=== PATIENT | female | born 1980 | race Caucasian/White ===

== ENCOUNTER 2020-09-10 12:55 | Emergency (ER) | payer OTHER, SELFPAY ==
[2020-09-10 13:00] VITALS: BP 168/98; PULSE 120; RESP 18; TEMP 36.7; O2SAT 99
--- NOTE | 2020-09-10 13:43 | NUR.NOTE ---
Nursing Note: Referral given to Care Management to [facility] care with PCP ALEX. Yahaira Vu
[2020-09-10] MEDS: Normal Saline 1,000 ML 1000 ML IV (14:05)
[2020-09-10 14:10] LABS: Abs Immature Grans 0.07 10^3/uL (0.0-0.06); Absolute Basophil Count 0.07 10^3/uL (0.0-0.2); Absolute Lymphocyte Count 1.67 10^3/uL (1.2-3.4); Absolute Monocyte Count 0.62 10^3/uL (0.1-0.8); Basophils % 0.5; Eosinophils % 2.8; HCT 36.5 % (36.0-46.0); HGB 12.3 g/dL (11.2-15.7); Immature Grans % 0.5; Lymphocytes % 12.2; MCH 26.6 pg (27.0-33.0); MCHC 33.7 % (32.0-36.0); MCV 78.8 fL (80-95); MPV 8.8 fL (8.0-11.0); Monocytes % 4.5; Neutrophils % 79.5; Nucleated RBC 0 %; Platelet Count 396 10^3/uL (130-400); RBC 4.63 10^6/uL (3.93-5.22); WBC 13.69 10^3/uL (4.4-10.8)
[2020-09-10 14:11] LABS: Absolute Eosinophil Count 0.38 10^3/uL (0.0-0.7); Absolute Neutrophil Count 10.88 10^3/uL (1.2-6.7)
[2020-09-10 14:24] LABS: Hemoglobin A1C 10.3 % (<5.7)
[2020-09-10 14:28] VITALS: BP 144/80; PULSE 95; RESP 14; O2SAT 100
[2020-09-10 14:30] LABS: ALT 11 U/L (14-59); AST 8 U/L (15-37); Albumin 2.5 g/dL (3.4-5.0); Alkaline Phosphatase 114 U/L (46-116); Anion Gap 5.9 mmol/L (3-11); BUN 19 mg/dL (7-18); Bilirubin, Total 0.2 mg/dL (0.2-1.0); CO2 28.1 mmol/L (21.0-32.0); CREATININE 1.63 mg/dL (0.55-1.02); Calcium 8.6 mg/dL (8.5-10.1); Chloride 96 mmol/L (98-107); Glucose 464 mg/dL (74-106); Potassium 4.1 mmol/L (3.5-5.1); Sodium 130 mmol/L (136-145); Total Protein 6.8 g/dL (6.4-8.2)
--- NOTE | 2020-09-10 15:27 | W.ED.GENAD ---
Discharge Plan Disposition Patient Disposition: HOME Condition: Stable Discharge Details Clinical Impression: Breast abscess, Cellulitis Primary Care Provider: None,None ED Provider: Efraín Lees Home Meds and New Rx's Prescriptions: New sulfamethoxazole-trimethoprim [Bactrim DS] 800-160 mg tablet 1 tab PO BID Qty: 20 RF: 0 Continued lisinopril 10 mg tablet 10 mg PO DAILY Qty: 30 RF: 0 metformin 500 mg tablet 500 mg PO BID Qty: 30 RF: 0 Lantus Solostar U-100 Insulin 100 unit/mL (3 mL) insulin pen 10 unit subcut BID Qty: 15 RF: 0 (DME) OneTouch Ultra Blue Test Strip Strip See Rx Instructions .ROUTE .MEDSUPPLY Qty: 50 RF: 0 Discharge Instructions Instructions: Cellulitis (ED), Abscess (ED) Additional Instructions: Bactrim as directed. Moin-eyx-rmxncfh Tylenol and/or Motrin as directed for discomfort. Warm soaks and/or compresses every 2 hours for 20 minutes. Change dressing daily. Please watch for new or worsening symptoms and return to the ER for any concerns. You have an appointment tomorrow at [facility] [phone] with Tutu Cancino to establish outpatient primary care follow-up at 9 AM. I have also made you an appointment with our surgical team, Dr. Salazar, on at 10:30 AM. Referrals: Tutu Cancino SOCK TURNER [NURSE PRACTITIONER] - Vee Roberts MD [ [facility] STAFF PHYSICIAN] - Discharge Data Discharge Date/Time-TO BE ENTERED AT DEPARTURE: 09/10/20 16:00 Medical Decision Making Patient presents with a pointing abscess to the medial right breast worsening over the past 1-1/2 weeks. More so she is a diabetic who has not been on insulin over the past several years, presents anxious and tachycardic. The abscess will need to be drained, I will reach out to surgery to get their recommendations. Initial fingerstick reveals glucose in the high 400s. Will obtain IV access, give IV fluid, obtain routine laboratory values including A1c. I will recheck to care management to have them talk with the patient and help right outpatient follow-up. Care management was able to get the patient a primary care appointment at [facility] tomorrow at 9 AM. I was able to speak with Dr. Roberts, surgery. The abscess does not involve the areola and she feels as though it can be drained here in the ER but she will be happy to follow the patient on in her office at 1030. Discussed my conversation with surgery and care management with the patient. Laboratory values reveal a white blood cell count of 13.69, sodium 130, creatinine 1.63 with a GFR of 34.6. Hemoglobin A1c 10.3. Wound culture obtained and pending Pulse trending downward, now 95 Glucose down to 394 Given she has not taken insulin in over 2 years, has an appointment with her primary care provider tomorrow morning, I will not initiate any insulin therapy now. Patient is agreeable to this plan. I&D performed without complication. We discussed wound care until she can be evaluated by surgery on . Patient has no additional questions or concerns and she is comfortable discharge at this time. Medical Records Medical records reviewed: Yes I reviewed the patient's medical records. Lab Data Lab results reviewed: Yes I reviewed the patient's lab results. Labs: 09/10/20 15:10 Breast - Right Wound Culture - Pending 09/10/20 15:10 Breast - Right Gram Stain - Final Laboratory Tests Range/Units 09/10/20 09/10/20 09/10/20 14:05 14:05 14:05 WBC (4.4-10.8) 10^3/uL 13.69 H RBC (3.93-5.22) 10^6/uL 4.63 Hgb (11.2-15.7) g/dL 12.3 Hct (36.0-46.0) % 36.5 MCV (80-95) fL 78.8 L MCH (27.0-33.0) pg 26.6 L MCHC (32.0-36.0) % 33.7 RDW (11.7-14.6) % 13.0 Plt Count (130-400) 10^3/uL 396 MPV (8.0-11.0) fL 8.8 Immature Gran % 0.5 Neutrophils % 79.5 Lymphocytes % 12.2 Monocytes % 4.5 Eosinophils % 2.8 Basophils % 0.5 Nucleated RBC % % 0 Absolute Neutrophils (1.2-6.7) 10^3/uL 10.88 H Absolute Lymphocytes (1.2-3.4) 10^3/uL 1.67 Absolute Monocytes (0.1-0.8) 10^3/uL 0.62 Absolute Eosinophils (0.0-0.7) 10^3/uL 0.38 Absolute Basophils (0.0-0.2) 10^3/uL 0.07 Sodium (136-145) mmol/L 130 L Potassium (3.5-5.1) mmol/L 4.1 Chloride (98-107) mmol/L 96 L Carbon Dioxide (21.0-32.0) mmol/L 28.1 Anion Gap (3-11) mmol/L 5.9 BUN (7-18) mg/dL 19 H Creatinine (0.55-1.02) mg/dL 1.63 H Estimated GFR/1.73 m2 (mL/min/1.73m2) 34.60 Glucose (74-106) mg/dL 464 H Hemoglobin A1c (<5.7) % 10.3 H Calcium (8.5-10.1) mg/dL 8.6 Total Bilirubin (0.2-1.0) mg/dL 0.2 AST (15-37) U/L 8 L ALT (14-59) U/L 11 L Alkaline Phosphatase (46-116) U/L 114 Total Protein (6.4-8.2) g/dL 6.8 Albumin (3.4-5.0) g/dL 2.5 L HPI General Mode of arrival: ambulatory. Date/Time Provider Initiated Documentation: 09/10/20 13:17. Limitations to Documentation: no limitations. Information obtained by: patient. HPI Narrative: 40-year-old female, known diabetes, has not taken insulin over 2 years because she did not have insurance. Patient is a current everyday smoker. She recently obtained insurance and is in the process of obtaining a primary care provider. She states that she has had reoccurring cyst all over her body, sometimes they spontaneously resolve, other times she needs to have them drained. She has had a cyst on her right medial breast now worsening for approximately 1-1/2 weeks. She denies any fever, pain in her axilla, rash elsewhere on her body. It is not drained on its own yet but is moderately to severely painful. She states that she does not want any pain medication simply wants the pressure relieved. Related Data Home Medications Medication Instructions Recorded Confirmed sulfamethoxazole-trimethoprim 1 tab PO BID #20 tab 09/10/20 09/11/20 [Bactrim DS] blood sugar diagnostic #50 ea 09/11/20 09/11/20 insulin glargine 100 unit/mL (3 10 unit SUBCUT BID #15 ml 09/11/20 09/11/20 mL) subcutaneous pen lisinopril 10 mg tablet 10 mg PO DAILY #30 tab 09/11/20 09/11/20 metformin 500 mg tablet 500 mg PO BID #30 tab 09/11/20 09/11/20 Previous Rx's Medication Instructions Recorded sulfamethoxazole-trimethoprim 1 tab PO BID #20 tab 09/10/20 [Bactrim DS] blood sugar diagnostic #50 ea 09/11/20 insulin glargine 100 unit/mL (3 10 unit SUBCUT BID #15 ml 09/11/20 mL) subcutaneous pen lisinopril 10 mg tablet 10 mg PO DAILY #30 tab 09/11/20 metformin 500 mg tablet 500 mg PO BID #30 tab 09/11/20 Allergies Allergy/AdvReac Type Severity Reaction Status Date / Time fentanyl AdvReac Verified 09/11/20 08:58 General Stated Complaint: Cellulitis JOE: 3 Review of Systems Constitutional Constitutional: Denies fatigue, Denies fever(s) and Denies weakness Musculoskeletal Musculoskeletal: Denies numbness and Denies tingling Integumentary/Breasts Skin/Breast: Reports erythema Neurologic Neurologic: Denies numbness, Denies tingling and Denies weakness Endocrine Endocrine: Denies fatigue and Denies polydipsia [facility] Medical History Diabetes mellitus Social History Smoking/Tobacco Use Status: Current every day Smoking risk assessment performed?: Yes Alcohol Intake: never Drug use: Occasionally Substance use type: marijuana Do you feel safe at home: Yes Do you feel safe in your relationship?: Yes Exam Const General: cooperative, healthy appearing, comfortable, no acute distress and anxious Orientation: alert and awake [facility] Head: normal to inspection, normocephalic and atraumatic Face and sinus: normal facial exam Mouth: moist mucous membranes Eyes General: appearance normal, both eyes and all related structures Eyelids: eyelids normal Conjunctivae: conjunctivae normal Neck Neck: normal visual inspection, full ROM, no lymphadenopathy, no meningeal signs, trachea midline, supple and nontender Chest Other: Right axilla nontender, no lymphadenopathy Chest/axillae images: 1. Centrally there is a fluctuant and pointing abscess with surrounding induration erythema, tenderness and warmth. Skin is intact. Does not extend across midline or to the areola. Resp Effort & Inspection: normal respiratory effort and able to speak in complete sentences Auscultation: clear to auscultation bilaterally Cardio Rate: tachycardic (112) Rhythm: regular rhythm GI Palpation: soft and nontender Skin General skin exam: no rashes or lesions noted Neuro General: patient alert, patient awake, moves all extremities and no focal motor deficits Sensory Exam: no sensory deficits noted Psych Appearance: grossly normal Mental Status: mental status grossly normal Course Vital Signs Vital signs: Vital Signs Temperature 36.7 C 09/10/20 13:00 Pulse 120 H 09/10/20 13:00 Respiratory Rate 18 09/10/20 13:00 Blood Pressure 168/98 H 09/10/20 13:00 Pulse Oximetry 99 09/10/20 13:00 Temperature 36.7 C 09/10/20 13:00 Temperature Source Temporal Artery Scan 09/10/20 13:00 Pulse 95 H 09/10/20 14:28 Respiratory Rate 14 09/10/20 14:28 Blood Pressure 144/80 H 09/10/20 14:28 Blood Pressure Position Sitting 09/10/20 13:00 Pulse Oximetry 100 09/10/20 14:28 Oxygen Delivery Method Room Air 09/10/20 14:28 Oxygen Flow Rate 0 09/10/20 14:28 Pain Level 8 09/10/20 13:00 Lab/Test Results Lab/Test Results: 09/10/20 15:09 Breast - Right Wound Culture - Pending 09/10/20 15:09 Breast - Right Gram Stain - Pending Laboratory Tests Range/Units 09/10/20 09/10/20 09/10/20 14:05 14:05 14:05 WBC (4.4-10.8) 10^3/uL 13.69 H RBC (3.93-5.22) 10^6/uL 4.63 Hgb (11.2-15.7) g/dL 12.3 Hct (36.0-46.0) % 36.5 MCV (80-95) fL 78.8 L MCH (27.0-33.0) pg 26.6 L MCHC (32.0-36.0) % 33.7 RDW (11.7-14.6) % 13.0 Plt Count (130-400) 10^3/uL 396 MPV (8.0-11.0) fL 8.8 Immature Gran % 0.5 Neutrophils % 79.5 Lymphocytes % 12.2 Monocytes % 4.5 Eosinophils % 2.8 Basophils % 0.5 Nucleated RBC % % 0 Absolute Neutrophils (1.2-6.7) 10^3/uL 10.88 H Absolute Lymphocytes (1.2-3.4) 10^3/uL 1.67 Absolute Monocytes (0.1-0.8) 10^3/uL 0.62 Absolute Eosinophils (0.0-0.7) 10^3/uL 0.38 Absolute Basophils (0.0-0.2) 10^3/uL 0.07 Sodium (136-145) mmol/L 130 L Potassium (3.5-5.1) mmol/L 4.1 Chloride (98-107) mmol/L 96 L Carbon Dioxide (21.0-32.0) mmol/L 28.1 Anion Gap (3-11) mmol/L 5.9 BUN (7-18) mg/dL 19 H Creatinine (0.55-1.02) mg/dL 1.63 H Estimated GFR/1.73 m2 (mL/min/1.73m2) 34.60 Glucose (74-106) mg/dL 464 H Hemoglobin A1c (<5.7) % 10.3 H Calcium (8.5-10.1) mg/dL 8.6 Total Bilirubin (0.2-1.0) mg/dL 0.2 AST (15-37) U/L 8 L ALT (14-59) U/L 11 L Alkaline Phosphatase (46-116) U/L 114 Total Protein (6.4-8.2) g/dL 6.8 Albumin (3.4-5.0) g/dL 2.5 L Procedures Abscess I/D Site: Other (R Breast) Side (if applicable): Right Local Anesthetic: Lidocaine 2% Amount of anesthesia used (mL): 5 Technique: Incised with #11 Blade Amount of fluid expressed (mL): 10 Irrigation: No Packing used?: Iodoform Complications: Other (Cultures obtained)
[2020-09-10] MEDS: Sulfameth/Trimeth DS TAB 1 TAB PO (15:30)
[2020-09-10 16:00] VITALS: BP 141/82; PULSE 91; RESP 16; O2SAT 100
== END 2020-09-10 16:00 | disposition home or self-care (01) ==
PROVIDERS: Emergency Provider Physician Assistant; PCP Nurse Practitioner Family
DX: N61.1 Abscess of the breast and nipple (principal); E11.65 Type 2 diabetes mellitus with hyperglycemia; Z79.4 Long term (current) use of insulin; T38.3X6A Underdosing of insulin and oral hypoglycemic [antidiabetic] drugs, initial encounter; Z91.120 Patient's intentional underdosing of medication regimen due to financial hardship; I10 Essential (primary) hypertension
CPT/HCPCS: 10061; 36415; 36416; 80053; 82962; 96360; 99284; 83036; 85025; 87070; 87205; 99282

== ENCOUNTER 2020-09-16 03:00 | Outpatient (CLI) | payer OTHER, SELFPAY ==
[2020-09-16 09:16] LABS: HCT 39.2 % (36.0-46.0); HGB 12.8 g/dL (11.2-15.7); MCH 26.6 pg (27.0-33.0); MCHC 32.7 % (32.0-36.0); MCV 81.3 fL (80-95); MPV 8.8 fL (8.0-11.0); Platelet Count 472 10^3/uL (130-400); RBC 4.82 10^6/uL (3.93-5.22); RDW 12.9 % (11.7-14.6); WBC 9.54 10^3/uL (4.4-10.8)
[2020-09-16 09:25] LABS: Prothrombin Time 9.7 sec (9.3-11.0)
[2020-09-16 09:53] LABS: ALT 11 U/L (14-59); AST 9 U/L (15-37); Alkaline Phosphatase 97 U/L (46-116); Anion Gap 8.8 mmol/L (3-11); BUN 25 mg/dL (7-18); Bilirubin, Total 0.1 mg/dL (0.2-1.0); CO2 23.2 mmol/L (21.0-32.0); CREATININE 1.98 mg/dL (0.55-1.02); Calcium 9.1 mg/dL (8.5-10.1); Chloride 101 mmol/L (98-107); Cholesterol 310 mg/dL (<200); Estimated GFR 27.64 (mL/min/1.73m2); Glucose 225 mg/dL (74-106); HDL Cholesterol 28 mg/dL (40-60); Potassium 4.9 mmol/L (3.5-5.1); Sodium 133 mmol/L (136-145); Total Protein 6.5 g/dL (6.4-8.2); Triglyceride 466 mg/dL (<150)
[2020-09-16 10:06] LABS: LDL CHOLESTEROL 173 mg/dL (<100)
== END 2020-09-16 03:20 ==
PROVIDERS: Surgery; Visit Provider Nurse Practitioner Family
DX: N61.1 Abscess of the breast and nipple (principal); E11.620 Type 2 diabetes mellitus with diabetic dermatitis; Z13.220 Encounter for screening for lipoid disorders; L03.818 Cellulitis of other sites; I10 Essential (primary) hypertension
CPT/HCPCS: 36415; 80048; 80053; 80061; 83721; 85027; 85610; 86140

== ENCOUNTER 2020-10-21 00:18 | Outpatient (CLI) | payer OTHER, SELFPAY ==
--- NOTE | 2020-10-21 06:45 | DI.MAMMO_ITS ---
EXAM: MG MAMMO DIAGNOSTIC BI and U/S breast RT limited CLINICAL HISTORY: S/P ABSCESS LOWER INNER QUAD RT BREAST, BREAST DISCHARGE, HARDNESS. TECHNIQUE: Craniocaudal and mediolateral oblique Full Field Digital Mammography views with Computer Aided Diagnosis followed by Tomosynthesis and right breast ultrasound. COMPARISON: No previous for comparison. FINDINGS: Mammography/Tomosynthesis: Masses/Architectural Distortion: None seen. Microcalcifictions: No suspicious pleomorphic-type are seen. Skin Thickening/Nipple Retraction: There is mild skin thickening seen in the inferior medial right br east. Right breast US: Echotexture: Normal appearance of the glandular tissue. In the subcutaneous layer of the tissues the re is an ovoid fluid collection measuring 3.7 x 0.6 x 3.9 cm. It is located at the 5 o'clock positio n of the right breast 6 cm from the nipple and corresponds to the mammographic abnormality. The flui d collection connects to the skin surface. This corresponds to the area of the patient's recent cyst aspiration. Shadowing: No suspicious foci. Cyst: None. Solid lesions: None seen. Ductal dilation: None. IMPRESSION: 1. No evidence of malignancy is noted. There is a 3.7 x 0.6 x 3.9 cm fluid collection in the subcutan eous tissues at the 5 o'clock position of the right breast 6 cm from the nipple. It connects to the skin surface. Given the patient's history, an abscess, resolving hematoma or seroma is suspected. 2. Unless there is more urgent need, follow-up screening mammography is recommended, as per [employer] guidelines. BI-RADS Category 2 - Benign Findings Breast Density - Category B - Scattered areas of fibroglandular density A negative radiographic report should not delay biopsy if a dominant or clinically suspicious mass is present. Up to ten percent of cancers are not identified on mammography. A negative report may reinforce clinical impression. Adenosis and dense breasts may obscure an underlying neoplasm. False positive reports average 6 to 10%. Patient will receive a letter notifying them of these results.
== END 2020-10-21 00:38 ==
PROVIDERS: PCP Nurse Practitioner Family; Visit Provider Surgery
DX: N61.1 Abscess of the breast and nipple (principal); N64.52 Nipple discharge; R92.8 Other abnormal and inconclusive findings on diagnostic imaging of breast
CPT/HCPCS: 76642; 77062; 77066; G0279

== ENCOUNTER 2020-10-22 20:54 | Outpatient (REF) | payer OTHER, SELFPAY | END 2020-10-22 21:14 | LOC: LBN 20:54 | PROVIDERS: PCP Nurse Practitioner Family; Visit Provider Surgery | DX: N61.1 Abscess of the breast and nipple (principal) | CPT/HCPCS: 87070; 87205 ==

== ENCOUNTER 2020-11-15 04:05 | Outpatient (CLI) | payer OTHER, SELFPAY ==
[2020-11-16 15:52] LABS: COVID-19 RT-PCR Result NEGATIVE (Negative)
== END 2020-11-15 04:25 ==
PROVIDERS: PCP Nurse Practitioner Family; Visit Provider Surgery
DX: Z11.52 Encounter for screening for COVID-19 (principal); Z01.818 Encounter for other preprocedural examination
CPT/HCPCS: U0003

== ENCOUNTER 2020-11-20 11:23 | Day surgery (SDC) | payer OTHER, SELFPAY ==
--- NOTE | 2020-11-20 06:59 | ROE_ITS ---
Date of service: 11/20/20 Time of Service: 13:26 Operative Note Operative Note DATE OF PROCEDURE: 11/20/20 PRE-OP DIAGNOSIS: Sebaceous cyst of right breast POST-OP DIAGNOSIS: same PROCEDURE: Excision of sebaceous cyst right breast SURGEON: Arleth Boles NET C DEVELOPER: Carmen Sanchez ANESTHESIA: MAC (ASA 2/ Brodie Ibanez CRNA) and local ESTIMATED BLOOD LOSS: 15 PATHOLOGY: other (Cyst of right Breast) COMPLICATIONS: None Patient was transported to: same day Patient's condition: stable Implants: none Indications: Right Breast sebacous cyst, s/p incision and drainage. P\\ Excision of sebaceous cyst in the OR under MAC Complications of the procedure were reviewed with her and she wished to p roceed. Complications include but are not limited to bleeding, infection, recurrence, wound dehiscence and adverse reaction to the medications. Questions were answered and entertained to her satisfaction and she wished to proceed. No guarantees were given or implied Findings: Cyst pocket with granulation tissue. No mass Procedure Description: After informed consent was obtained the patient was taken to the Operating room and placed in a supine position. The patient was placed under MAC sedation by anesthesia. At this point a time out was done. The patients name, , allergy to medications, DVT porphilaxis and antibiotic prophilaxis, procedure and site were reviewed. Fire risk was assessed. The skin was then prepped and draped in a sterile surgical fashion. An area around the cyst was marked measuring 2 x 6 cm. 1% Lidocaine mixed 50/50 with 0.5% Marcaine with epinephrine was injected along the marked area. An incision was made around the marked area with a 15 blade. Dissection was done down to normal fatty tissue with cautery. Once the lesion was completely dissected it was marked at the 12 o'clock position and placed into formalin and sent to pathology. The wound was irrigated with some saline. Bleeding was stopped using cautery. Once the wound was clean and dry the subcutaneous tissue was re-approximated with 3-0 Vicryl interrupted sutures. The dermis was closed with a subcuticular running 4-0 Vicryl suture. Skin was cleaned and dried and mastasol and steri-strips were applied. A dry Mepilex dressing was applied. The patient tolerated the procedure well and there were no immediate complications. Needle counts were correct at the end of the case. The patient was woken up and taken back to [facility] in stable condition.
--- NOTE | 2020-11-20 07:01 | W.PM.DSUDISC ---
Discharge Plan Disposition Patient Disposition: HOME Condition: Good Discharge Details Reason For Visit: Cyst of right breast Attending Provider: Arleth Boles Primary Care Provider: Tutu Cancino Home Meds and New Rx's Prescriptions: Continued Lantus Solostar U-100 Insulin 100 unit/mL (3 mL) insulin pen 10 unit subcut BID Qty: 15 RF: 0 (DME) OneTouch Ultra Blue Test Strip Strip See Rx Instructions .ROUTE .MEDSUPPLY Qty: 50 RF: 0 clobetasol 0.05 % ointment 1 applic topical DAILY Qty: 45 RF: 0 (DME) pen needle, diabetic [1st Tier Unifine Pentips] 31 gauge x 3/16 needle See Rx Instructions .ROUTE .MEDSUPPLY Qty: 100 RF: 3 rizatriptan [Maxalt] 10 mg tablet 10 mg PO ONCE Qty: 14 RF: 0 ondansetron HCl [Zofran] 4 mg tablet 4 mg PO Q6H Qty: 14 RF: 1 metformin 500 mg tablet 500 mg PO BID Qty: 30 RF: 0 atorvastatin 40 mg tablet 40 mg PO DAILY Qty: 90 RF: 5 topiramate [Topamax] 25 mg tablet 25 mg PO DAILY Qty: 30 RF: 0 lisinopril 20 mg tablet 20 mg PO DAILY Qty: 60 RF: 4 cephalexin [Keflex] 500 mg capsule 500 mg PO BID Qty: 10 RF: 0 Discharge Instructions Additional Instructions: Activity at Home after surgery: 1. As tolerated Diet, Nutrition, & wound healin. Avoid alcohol until after you are recovered from your surgery 2. Make sure to eat plenty of lean protein (meat, fish, eggs, cottage cheese, beans) 3. Eat a variety of fruits and vegetables. Eat plenty of high fiber foods to avoid constipation. 4. Drink plenty of liquids to stay hydrated and avoid constipation Pain Medications: 1. Tylenol 650 mg every 6 hours and Ibuprofen 600 mg every 6 hours. You can alternate between the 2 medications every 3 hours 2. If a narcotic has been prescribed take as directed only for breakthrough pain For Constipation: 1. Take Milk of Magnesia or MiraLax as needed for constipation Other: 1. You may shower daily. Do not scrub the incisions 2. Do not soak the incisions for 1 week 3. You may alternate ice and heat as needed for pain and swelling Wound Care: 1. Keep the incisions clean and dry Please call our office if you develop: 1. Fevers >101.5 2. Nausea or Vomiting 3. Worsening pain 4. Redness and thick discharge from the wounds If after hours please call the Hospital at and ask to speak to the on-call surgeon Referrals: Arleth Boles MD [ [facility] STAFF PHYSICIAN] - 11/29/20 10:30 am Activity:: Activity as Tolerated Activity:: Activity as Tolerated Equipment/Supplies:: No Equipment Needed Diet:: As Tolerated Discharge Orders Discharge Orders: Discharge Order (Routine); Ordered 11/20/20 Ordered By: Arleth Boles
[2020-11-20 11:30] VITALS: BP 163/99; PULSE 86; RESP 17; TEMP 36.2; O2SAT 100
[2020-11-20] MEDS: Normal Saline 1,000 ML 80 ML IV (12:15)
[2020-11-20] MEDS: ceFAZolin 2 GM/50 ML BAG IVPB (12:33)
[2020-11-20] MEDS: Bupivacaine 0.25% Pres-Free 30 ML VIAL (12:54)
[2020-11-20] MEDS: EPINEPHrine 1 MG/ML AMP pres-free (12:56)
[2020-11-20] MEDS: Lidocaine 1% Multi-Dose 50 ML VIAL (12:57)
--- NOTE | 2020-11-20 13:00 | BREAST_PTH ---
PATIENT: Kaitlynn Niño LOC: [facility] U#:[id number] AGE/SX: 40/F ROOM: RE11/20/[address]: Arleth Boles MD : 1980 BED: DIS: 11/20/2020 SPEC #: [id number] RECD: 11/20/20 18:30 STATUS: DIMA REMichael #: [id number] VARUN: 11/20/20 13:[address]: Arleth Boles DEPT: Surgical Specimen RECD BY: Teri Hicks ENTERED: 11/20/20 18:31 SP TYPE: Breast OTHR DR: Tutu Cancino, JOSELINE Tissues: 1 - BREAST INCISION/EXCISION Procedures: SKIN LEVEL 4 Comments: [id number]
[2020-11-20 13:41] VITALS: BP 156/90; PULSE 68; RESP 19; TEMP 36.1; O2SAT 100
== END 2020-11-20 14:04 | disposition home or self-care (01) ==
LOC: DSU 13:26 → SUR 11-21 08:24
PROVIDERS: PCP Nurse Practitioner Family; Visit Provider Surgery
PROC: (CPT 19120; principal; 2020-11-20 13:15)
DX: L72.3 Sebaceous cyst (principal); E11.9 Type 2 diabetes mellitus without complications; Z79.4 Long term (current) use of insulin
CPT/HCPCS: 19120; 81025; 88305; 88307; J0171; J0690; J2001

== ENCOUNTER 2020-12-02 09:19 | Outpatient (REF) | payer OTHER, SELFPAY ==
--- NOTE | 2020-12-02 08:45 | PAPFT_PTH ---
PATIENT: Kaitlynn Niño LOC: [facility] U#:[id number] AGE/SX: 40/F ROOM: RE12/02/[address]: Tutu Cancino NP : 1980 BED: DIS: 12/02/2020 SPEC #: [id number] RECD: 12/02/20 13:16 STATUS: DIMA PIERCE #: [id number] VARUN: 12/02/20 08:[address]: Tutu Cancino DEPT: [facility] Cytology RECD BY: Teri Hicks Tissues: 1 - CX/ENDOCX FOR PAP SMEARS Procedures: PAP THIN PREP/UVM Screening HPV DNA PROBE Comments: [id number]
== END 2020-12-02 09:39 ==
LOC: LBN 09:19
PROVIDERS: PCP Nurse Practitioner Family; Visit Provider Nurse Practitioner Family
DX: Z12.4 Encounter for screening for malignant neoplasm of cervix (principal); Z11.51 Encounter for screening for human papillomavirus (HPV)
CPT/HCPCS: 88142; 87624

== ENCOUNTER 2020-12-27 01:54 | Outpatient (CLI) | payer OTHER, SELFPAY ==
[2020-12-27 13:14] LABS: CREATININE 1.2 mg/dL (0.55-1.02); Estimated GFR 49.27 (mL/min/1.73m2)
[2020-12-27 13:18] LABS: Hemoglobin A1C 9.3 % (<5.7)
== END 2020-12-27 01:55 | disposition home or self-care (01) ==
LOC: LBO 01:54
PROVIDERS: PCP Nurse Practitioner Family; Visit Provider Nurse Practitioner Family
DX: E11.65 Type 2 diabetes mellitus with hyperglycemia (principal); Z79.4 Long term (current) use of insulin
CPT/HCPCS: 36415; 82565; 83036

== ENCOUNTER 2021-03-05 15:12 | Outpatient (REF) | payer OTHER, SELFPAY ==
[2021-03-05 22:11] LABS: Abs Immature Grans 0.04 10^3/uL (0.0-0.06); Absolute Basophil Count 0.08 10^3/uL (0.0-0.2); Absolute Eosinophil Count 0.45 10^3/uL (0.0-0.7); Absolute Monocyte Count 0.44 10^3/uL (0.1-0.8); Absolute Neutrophil Count 4.96 10^3/uL (1.2-6.7); Eosinophils % 5.4; HCT 37.9 % (36.0-46.0); HGB 12.5 g/dL (11.2-15.7); Immature Grans % 0.5; Lymphocytes % 28.7; MCH 26.9 pg (27.0-33.0); MCV 81.7 fL (80-95); MPV 9.4 fL (8.0-11.0); Monocytes % 5.3; Neutrophils % 59.1; Nucleated RBC 0 %; Platelet Count 349 10^3/uL (130-400); RBC 4.64 10^6/uL (3.93-5.22); RDW-SD 41.1 fL; WBC 8.37 10^3/uL (4.4-10.8)
[2021-03-05 22:15] LABS: CREATININE 1.6 mg/dL (0.55-1.02); Estimated GFR 35.35 (mL/min/1.73m2)
[2021-03-05 22:22] LABS: ALT 18 U/L (14-59); AST 11 U/L (15-37); Albumin 3.2 g/dL (3.4-5.0); Alkaline Phosphatase 95 U/L (46-116); Anion Gap 9.8 mmol/L (3-11); BUN 21 mg/dL (7-18); Bilirubin, Total 0.3 mg/dL (0.2-1.0); C-Reactive Protein 0.84 mg/dL (0.0-0.3); CO2 25.2 mmol/L (21.0-32.0); CREATININE 1.6 mg/dL (0.55-1.02); Chloride 105 mmol/L (98-107); Estimated GFR 35.35 (mL/min/1.73m2); Glucose 157 mg/dL (74-106); Potassium 4.6 mmol/L (3.5-5.1); Sodium 140 mmol/L (136-145); Total Protein 6.5 g/dL (6.4-8.2)
== END 2021-03-05 15:13 | disposition home or self-care (01) ==
LOC: LBN 15:12
PROVIDERS: PCP Nurse Practitioner Family; Visit Provider Nurse Practitioner Family
DX: R10.9 Unspecified abdominal pain (principal); E11.65 Type 2 diabetes mellitus with hyperglycemia; Z79.4 Long term (current) use of insulin; N39.0 Urinary tract infection, site not specified; R19.8 Other specified symptoms and signs involving the digestive system and abdomen
CPT/HCPCS: 80053; 82565; 85025; 86140; 87086

== ENCOUNTER 2021-05-18 06:21 | Emergency (ER) | payer OTHER, SELFPAY ==
[2021-05-18] VITALS (20 sets, daily range): BP systolic 151–219; BP diastolic 67–99; PULSE 45–120; RESP 20; TEMP 36.2; O2SAT 96–100
--- NOTE | 2021-05-18 06:30 | DI.CT_ITS ---
Exam(s) CT BRAIN CTA EXAM: CT BRAIN CTA CLINICAL HISTORY: severe headache. TECHNIQUE: Imaging Protocol: Both noninfused and contrast infused CT scans of the brain were perform ed. IV Contrast Dose =85 cc Axial computed tomography images with coronal and sagittal reformatted images were created and review ed COMPARISON: No exams were available for comparison FINDINGS: BRAIN CTA STUDY: The field of view of this study is from the skull base up. Neck was not scanned. ANTERIOR CIRCULATION: Both internal carotid arteries are patent in the skull base as well as within t he cavernous sinuses. Both middle cerebral arteries are patent. Both A1 segments are patent as are the anterior cerebral arteries. There is no evidence of aneurysm at the level of the anterior commun icating artery. POSTERIOR CIRCULATION: Basilar artery is formed at the skull base by both vertebral arteries. There is no evidence of intraluminal thrombus nor dissection in the basilar artery. Distally the sup erior cerebellar arteries are patent. Basilar artery terminates as right posterior cerebral artery. Left posterior cerebral artery is fed predominantly by a posterior communicating artery on the left side of the [id number]-[id number]. There are no skull fractures nor fluid in the visualized paranasal sinuses. There is no evidence of intracranial hemorrhage, mass effect, or shift of midline structures. There are no extra-axial fluid collections. The ventricles are not enlarged or shifted and there is no blo od within the ventricular system nor within the basal cisterns. There are no ring enhancing lesions in the brain and there is no abnormal meningeal enhancement, foca l or diffuse. IMPRESSION: Patent appearing intracranial arteries. Also no aneurysms. No significant enhancing intracranial findings. No evidence of intracranial hemorrhage, intra or extra-axial. RADIATION DOSE DELIVERED: 1,440.52mGy.cm Total DLP DATA REPOSITORY: All CT scans at this facility are submitted to the National Radiology Data Registry (NRDR) Dose Index Registry (DIR) with the [employer] ([employer]). RADIATION OPTIMIZATION: All CT scans at this facility use at least one of these dose optimization te chniques: automated exposure control; mA and/or kV adjustment per patient size (includes targeted exa ms where dose is matched to clinical indication); or iterative reconstruction.
[2021-05-18 06:49] LABS: Abs Immature Grans 0.04 10^3/uL (0.0-0.06); Absolute Basophil Count 0.07 10^3/uL (0.0-0.2); Absolute Eosinophil Count 0.39 10^3/uL (0.0-0.7); Absolute Lymphocyte Count 2.76 10^3/uL (1.2-3.4); Absolute Monocyte Count 0.44 10^3/uL (0.1-0.8); Absolute Neutrophil Count 5.39 10^3/uL (1.2-6.7); Basophils % 0.8; Eosinophils % 4.3; HCT 40.8 % (36.0-46.0); HGB 13.2 g/dL (11.2-15.7); Immature Grans % 0.4; Lymphocytes % 30.4; MCH 26.5 pg (27.0-33.0); MCHC 32.4 % (32.0-36.0); MCV 81.8 fL (80-95); MPV 8.7 fL (8.0-11.0); Monocytes % 4.8; Neutrophils % 59.3; Nucleated RBC 0 %; Platelet Count 441 10^3/uL (130-400); RBC 4.99 10^6/uL (3.93-5.22); RDW 13.2 % (11.7-14.6); RDW-SD 39.2 fL; WBC 9.09 10^3/uL (4.4-10.8)
[2021-05-18] MEDS: Normal Saline 1,000 ML 1000 ML IV ×2 (06:50→09:46)
[2021-05-18] MEDS: Ketorolac 30 MG/ML VIAL IVP (06:52)
[2021-05-18] MEDS: methylPREDNISolone SUCC 125 MG VIAL IVP (06:55)
[2021-05-18] MEDS: diphenhydrAMINE 50 MG/ML VIAL 25 MG IVP (06:57)
--- NOTE | 2021-05-18 06:57 | W.ED.GENAD ---
Discharge Plan Disposition Patient Disposition: HOME Condition: Improving Discharge Details Clinical Impression: Migraine Primary Care Provider: Tutu Cancino ED Provider: Kaylee Marte Home Meds and New Rx's Prescriptions: New prochlorperazine maleate [Compazine] 10 mg tablet 10 mg PO TID PRN (Reason: nausea and vomiting) Qty: 7 RF: 0 Continued Lantus Solostar U-100 Insulin 100 unit/mL (3 mL) insulin pen 10 unit subcut BID Qty: 15 RF: 0 (DME) OneTouch Ultra Blue Test Strip Strip See Rx Instructions .ROUTE .MEDSUPPLY Qty: 50 RF: 0 clobetasol 0.05 % ointment 1 applic topical DAILY Qty: 45 RF: 0 (DME) pen needle, diabetic [1st Tier Unifine Pentips] 31 gauge x 3/16 needle See Rx Instructions .ROUTE .MEDSUPPLY Qty: 100 RF: 3 lisinopril 40 mg tablet 40 mg PO DAILY Qty: 90 RF: 4 ondansetron HCl [Zofran] 4 mg tablet 4 mg PO Q6H Qty: 14 RF: 1 metformin 500 mg tablet 1,000 mg PO BID Qty: 180 RF: 4 atorvastatin 40 mg tablet 40 mg PO DAILY Qty: 90 RF: 5 Discharge Instructions Instructions: Migraine Headache (ED) Additional Instructions: Drink plenty of fluids and get plenty of rest. Alternate tylenol and motrin as needed and directed for pain. Take the Imitrex that you have at home as needed and directed for headache. Take the compazine as needed and directed for nausea and vomiting. Your prescription has been sent electronically to your pharmacy. Follow up with your primary care doctor in 1 week for re-evauation. You have been placed on the care management list to help arrange for a follow-up appointment with the neurologist Dr. Diop for reevaluation of your headache and your history of migraines. Return immediately to the emergency department if you develop any worsening or new concerning symptoms such as fever, neck pain, worsening headache or persistent vomiting. Stand Alone Forms: Work Release Referrals: Rose Diop MD [ [facility] STAFF PHYSICIAN] - Discharge Data Discharge Date/Time-TO BE ENTERED AT DEPARTURE: 05/18/21 11:55 Discharge Physician: Kaylee Marte Medical Decision Making <Les Araiza DO - Last Filed: 05/18/21 07:00> 40-year-old female with a past medical history of diabetes, hypertension, migraines, presents today for evaluation of migraine headache. Patient states that she has had a headache for the last 4 days. It is been gradual in onset. She states that she has had headache of this severity and this style in the past however usually they do not last 4 days. Pain is made worse with light and loud noise. She does admit to seeing squiggly's in her vision which she states is classic for her migraines. Improved with nothing. Patient has taken NSAID and her normal medications with no improvement. Patient denies fever or chills. The patient denies any headache red flags of worst headache of life, thunderclap headache, neck pain, fever, chills, concerning family history of polycystic kidney disease, Marfan syndrome, Nate-Danlos syndrome, abdominal aortic aneurysm, aortic dissection, or intracranial aneurysm. She denies any other complaints at this time. No other modifying factors. Exam demonstrates a well-appearing female who does appear to be having a notable headache at this time. Normal neurologic exam. No clinical evidence of meningitis. No concerning red flags for meningitis, bleed. However as of the patient's age, and history of headache without any imaging in the past I do feel that imaging is indicated at this time for further assessment to rule out mass, large aneurysm, or other significant anatomic abnormality. Will give migraine cocktail, monitor closely and reassess. <Kalyee Marte DO - Last Filed: 05/19/21 10:36> 0800 --please see Dr. Araiza's note for initial presentation, exam and plan. Case endorsed to reassess after medications. After medication given here this morning she does feel better but still with some headache. She states this is typical of her usual migraine. Denies thunderclap quality, sudden onset, fever or neck pain. She has no focal deficits and no meningeal signs. History and presentation not c/w subarachnoid hemorrhage, meningitis. Final report of imaging pending but no obvious acute findings noted. Reported h/o tubal ligation. 0930 --delay in vrad obtaining all images -patient reassessed and she is feeling a little better. Will give another liter of IV fluids and IV Tylenol while awaiting imaging report. Labs reviewed and unremarkable. 1140 --CT negative. Patient reassessed and she feels much better and feels good to go home. Her is driving her home. She was given Compazine to go and prescription sent electronically to her pharmacy. We will place patient on care management list to help arrange for a follow-up appointment with neurology for her headache and history of migraines. Usual and customary return precautions given prior to discharge. Medical Records Medical records reviewed: Yes I reviewed the patient's medical records. Imaging Data Radiologic Study: Radiologist's impression: CT Angiography Head With Contrast, Arteriography Exam date and time: 05/18/2021 6:38 AM Age: 40 years old Clinical indication: Other: Severe headache TECHNIQUE: Imaging protocol: Computed tomography angiography of the head with contrast. Exam focused on the arteries. 3D rendering (Not supervised by radiologist): MIP and/or 3D reconstructed images were created by the technologist. Radiation optimization: All CT scans at this facility use at least one of these dose optimization techniques: automated exposure control; mA and/or kV adjustment per patient size (includes targeted exams where dose is matched to clinical indication); or iterative reconstruction. COMPARISON: No relevant prior studies available. FINDINGS: ANTERIOR CIRCULATION: Right internal carotid artery: Unremarkable. Intracranial segment is patent with no significant stenosis. No aneurysm. Right middle cerebral artery: Unremarkable. No occlusion or significant stenosis. No aneurysm. Right anterior cerebral artery: Unremarkable. No occlusion or significant stenosis. No aneurysm. Left internal carotid artery: Unremarkable. Intracranial segment is patent with no significant stenosis. No aneurysm. Left middle cerebral artery: Unremarkable. No occlusion or significant stenosis. No aneurysm. Left anterior cerebral artery: Unremarkable. No occlusion or significant stenosis. No aneurysm. POSTERIOR CIRCULATION: Right vertebral artery: Unremarkable. No occlusion or significant stenosis. No aneurysm. Left vertebral artery: Unremarkable. No occlusion or significant stenosis. No aneurysm. Basilar artery: Unremarkable. No occlusion or significant stenosis. No aneurysm. Right posterior cerebral artery: Unremarkable. No occlusion or significant stenosis. No aneurysm. Left posterior cerebral artery: Unremarkable. No occlusion or significant stenosis. No aneurysm. Brain: No definite mass, mass effect, or midline shift. Cerebral ventricles: No ventriculomegaly. Bones/joints: Unremarkable. No acute fracture. Soft tissues: Unremarkable. IMPRESSION: No large vessel stenosis or occlusion. No aneurysm. Lab Data Lab results reviewed: Yes I reviewed the patient's lab results. Labs: Laboratory Tests Range/Units 05/18/21 05/18/21 06:45 06:45 WBC (4.4-10.8) 10^3/uL 9.09 RBC (3.93-5.22) 10^6/uL 4.99 Hgb (11.2-15.7) g/dL 13.2 Hct (36.0-46.0) % 40.8 MCV (80-95) fL 81.8 MCH (27.0-33.0) pg 26.5 L MCHC (32.0-36.0) % 32.4 RDW (11.7-14.6) % 13.2 Plt Count (130-400) 10^3/uL 441 H MPV (8.0-11.0) fL 8.7 Immature Gran % 0.4 Neutrophils % 59.3 Lymphocytes % 30.4 Monocytes % 4.8 Eosinophils % 4.3 Basophils % 0.8 Nucleated RBC % % 0 Absolute Neutrophils (1.2-6.7) 10^3/uL 5.39 Absolute Lymphocytes (1.2-3.4) 10^3/uL 2.76 Absolute Monocytes (0.1-0.8) 10^3/uL 0.44 Absolute Eosinophils (0.0-0.7) 10^3/uL 0.39 Absolute Basophils (0.0-0.2) 10^3/uL 0.07 Sodium (136-145) mmol/L 137 Potassium (3.5-5.1) mmol/L 4.5 Chloride (98-107) mmol/L 103 Carbon Dioxide (21.0-32.0) mmol/L 24.6 Anion Gap (3-11) mmol/L 9.4 BUN (7-18) mg/dL 37 H Creatinine (0.55-1.02) mg/dL 1.4 H Estimated GFR/1.73 m2 (mL/min/1.73m2) 41.24 Glucose (74-106) mg/dL 184 H Calcium (8.5-10.1) mg/dL 9.2 Total Bilirubin (0.2-1.0) mg/dL 0.2 AST (15-37) U/L 16 ALT (14-59) U/L 15 Alkaline Phosphatase (46-116) U/L 96 Total Protein (6.4-8.2) g/dL 7.4 Albumin (3.4-5.0) g/dL 3.2 L HPI <Les Araiza DO - Last Filed: 05/18/21 07:00> General Date/Time Provider Initiated Documentation: 05/18/21 06:25. HPI Narrative: 40-year-old female with a past medical history of diabetes, hypertension, migraines, presents today for evaluation of migraine headache. Patient states that she has had a headache for the last 4 days. It is been gradual in onset. She states that she has had headache of this severity and this style in the past however usually they do not last 4 days. Pain is made worse with light and loud noise. She does admit to seeing squiggly's in her vision which she states is classic for her migraines. Improved with nothing. Patient has taken NSAID and her normal medications with no improvement. Patient denies fever or chills. The patient denies any headache red flags of worst headache of life, thunderclap headache, neck pain, fever, chills, concerning family history of polycystic kidney disease, Marfan syndrome, Nate-Danlos syndrome, abdominal aortic aneurysm, aortic dissection, or intracranial aneurysm. She denies any other complaints at this time. No other modifying factors. Related Data Home Medications Medication Instructions Recorded Confirmed blood sugar diagnostic #50 ea 09/11/20 03/05/21 clobetasol 0.05 % topical ointment 1 applic TOPICAL DAILY #45 g 09/11/20 05/18/21 insulin glargine 100 unit/mL (3 10 unit SUBCUT BID #15 ml 09/11/20 05/18/21 mL) subcutaneous pen pen needle, diabetic 31 gauge x #100 ea 09/12/20 03/05/2101/14 ondansetron HCl 4 mg tablet 4 mg PO Q6H #14 tab 10/11/20 05/18/21 lisinopril 40 mg tablet 40 mg PO DAILY #90 tab 12/02/20 05/18/21 atorvastatin 40 mg tablet 40 mg PO DAILY #90 tab 03/06/21 05/18/21 metformin 500 mg tablet 1,000 mg PO BID #180 tab 03/06/21 05/18/21 prochlorperazine maleate 10 mg PO TID PRN #7 tab 05/18/21 [Compazine] Previous Rx's Medication Instructions Recorded blood sugar diagnostic #50 ea 09/11/20 clobetasol 0.05 % topical ointment 1 applic TOPICAL DAILY #45 g 09/11/20 insulin glargine 100 unit/mL (3 10 unit SUBCUT BID #15 ml 09/11/20 mL) subcutaneous pen pen needle, diabetic 31 gauge x #100 ea 09/12/2001/14 ondansetron HCl 4 mg tablet 4 mg PO Q6H #14 tab 10/11/20 lisinopril 40 mg tablet 40 mg PO DAILY #90 tab 12/02/20 atorvastatin 40 mg tablet 40 mg PO DAILY #90 tab 03/06/21 metformin 500 mg tablet 1,000 mg PO BID #180 tab 03/06/21 prochlorperazine maleate 10 mg PO TID PRN #7 tab 05/18/21 [Compazine] Allergies Allergy/AdvReac Type Severity Reaction Status Date / Time fentanyl AdvReac Pt states Verified 05/18/21 07:04 increased BP, HR, and temperature. General Stated Complaint: Headache JOE: 3 Review of Systems <Les Araiza DO - Last Filed: 05/18/21 07:00> All systems reviewed & are unremarkable except as noted in HPI and below PFSH <Les Araiza DO - Last Filed: 05/18/21 07:00> Medical History Diabetes mellitus History of tobacco use Hypertension Hypertriglyceridemia Lipoprotein deficiency Malignant melanoma of skin Microalbuminuria NLD (necrobiosis lipoidica diabeticorum) Obesity, unspecified Splenic cyst P011/20/20 Pt states 2010 - DKA, induced coma, laporascopy w/splenic cyst removed. atient records show Splenic cyst removal (no date noted)-kb Surgical History S/P tonsillectomy Status post incision and drainage (~09/10/20) Family History Mother , 67 Asthma Diabetes Father , 82 Cancer Lung, kidney, bladder, prostate Hyperlipidemia Heart disease Hypertension Social History Smoking/Tobacco Use Status: Current every day Tobacco Type: cigarettes Years smoked: 2 Quit status: considering quitting Smoking risk assessment performed?: Yes Alcohol Intake: former Drug use: Daily Substance use type: marijuana Caregiver/Support person: No Household members: spouse and family Housing: house Communication Needs: None Do you need help understanding health information?: Rarely Pets and animals: Yes Pets and animals: cat(s) and dog(s) Sexually active: Yes Do you think of yourself as: straight/heterosexual Current gender identity: female What is your relationship status?: How often do you talk on the phone with friends or family?: once per week How often do you get together with friends or relatives?: twice per week How often do you attend jehovah's witness or judaism services?: decline to answer Do you belong to any clubs or organized social groups?: no Panel score (0-1 are the most socially isolated patients): 2 What type of physical activity do you participate in: walking Duration: 15-30 minutes/day Frequency: 3-4 times per week Fina/Pentecostal: No preference Special fina needs: No Seatbelt use: always Helmet use: Yes Helmet use: sometimes Drive intox or ride w/intox buggy driver: No Do you feel safe at home: Yes Do you feel safe in your relationship?: Yes Victim of physical abuse: No Victim of emotional abuse: No Victim of sexual abuse: No Would you like helpful sources: No Exam <Les Araiza DO - Last Filed: 05/18/21 07:00> Narrative Exam Narrative: 1.Const: Well-nourished, Well-developed, appearing stated age 2.Eyes: PERRL, no conjunctival injection, and symmetrical lids. 3.ENT: Atraumatic external nose and ears. Moist MM. Neck: Symmetric, trachea midline, No thyromegaly. Patient demonstrates good movement of cervical neck. There is no nuchal rigidity, no nuchal tenderness. Patient is able to flex the neck without any difficulty or significant pain. Negative Kernig's and Brudzinski sign. 4.CVS: +S1/S2, No murmurs or gallops. Peripheral pulses 2+ and equal in all extremities. Brisk capillary refill in all extremities. 5.RESP: Unlabored respiratory effort. Clear to auscultation bilaterally. No wheezes rales or rhonchi 6.GI: Soft, Nontender/Nondistended, No hepatosplenomegaly. No guarding or rebound. 7.MSK: Normocephalic/Atraumatic, Extremities w/o deformity or ttp No cyanosis or clubbing, Normal movement of all extremities 8.Skin: Warm, Dry. No rashes or lesions. 9.Neuro: rheumatology nurse II-XII grossly intact. Sensation grossly intact, no focal neurologic deficits. All 6 cardinal planes of vision are fully intact. No evidence of rotatory or vertical nystagmus. The patient demonstrated a normal [id number], good dexterity. There was no evidence of dysdiadochokinesia. Patient was able to ambulate without difficulty. There was no wide-based gait. Romberg testing was normal. Gtim-[id number] testing was normal. Sensation was intact bilaterally as well as muscle strength bilaterally for all extremities. Patient was able to verbalize butter cup with no slurring, or miss pronunciation. 10.Psych: (AAO) x3. Appropriate mood and affect Course <Les Araiza, DO - Last Filed: 05/18/21 07:00> Vital Signs Vital signs: Vital Signs Temperature 36.2 C L 05/18/21 06:27 Pulse 120 H 05/18/21 06:27 Respiratory Rate 20 05/18/21 06:27 Blood Pressure 219/99 H 05/18/21 06:27 Pulse Oximetry 100 05/18/21 06:27 Temperature 36.2 C L 05/18/21 06:27 Temperature Source Skin 05/18/21 06:27 Pulse 120 H 05/18/21 06:27 Respiratory Rate 20 05/18/21 06:27 Blood Pressure 219/99 H 05/18/21 06:27 Blood Pressure Position Supine 05/18/21 06:27 Pulse Oximetry 100 05/18/21 06:27 Oxygen Delivery Method Room Air 05/18/21 06:27 Oxygen Flow Rate 0 05/18/21 06:27 Pain Level 9 05/18/21 06:52 Lab/Test Results Lab/Test Results: Laboratory Tests Range/Units 05/18/21 06:45 WBC (4.4-10.8) 10^3/uL 9.09 RBC (3.93-5.22) 10^6/uL 4.99 Hgb (11.2-15.7) g/dL 13.2 Hct (36.0-46.0) % 40.8 MCV (80-95) fL 81.8 MCH (27.0-33.0) pg 26.5 L MCHC (32.0-36.0) % 32.4 RDW (11.7-14.6) % 13.2 Plt Count (130-400) 10^3/uL 441 H MPV (8.0-11.0) fL 8.7 Immature Gran % 0.4 Neutrophils % 59.3 Lymphocytes % 30.4 Monocytes % 4.8 Eosinophils % 4.3 Basophils % 0.8 Nucleated RBC % % 0 Absolute Neutrophils (1.2-6.7) 10^3/uL 5.39 Absolute Lymphocytes (1.2-3.4) 10^3/uL 2.76 Absolute Monocytes (0.1-0.8) 10^3/uL 0.44 Absolute Eosinophils (0.0-0.7) 10^3/uL 0.39 Absolute Basophils (0.0-0.2) 10^3/uL 0.07 Sign Out <Les Araiza DO - Last Filed: 05/18/21 07:00> Sign Out Data: Sign Out Comment: Headache, suspect migraine. Pending CT results. Last updated by Les Araiza DO at 05/18/21 07:35
[2021-05-18] MEDS: Prochlorperazine 10 MG/2 ML VIAL IVP (06:59)
[2021-05-18 07:09] LABS: ALT 15 U/L (14-59); AST 16 U/L (15-37); Albumin 3.2 g/dL (3.4-5.0); Alkaline Phosphatase 96 U/L (46-116); Anion Gap 9.4 mmol/L (3-11); BUN 37 mg/dL (7-18); Bilirubin, Total 0.2 mg/dL (0.2-1.0); CO2 24.6 mmol/L (21.0-32.0); CREATININE 1.4 mg/dL (0.55-1.02); Calcium 9.2 mg/dL (8.5-10.1); Chloride 103 mmol/L (98-107); Estimated GFR 41.24 (mL/min/1.73m2); Glucose 184 mg/dL (74-106); Potassium 4.5 mmol/L (3.5-5.1); Sodium 137 mmol/L (136-145); Total Protein 7.4 g/dL (6.4-8.2)
[2021-05-18] MEDS: Omnipaque 350 MG/ML 100 ML BTL IV (07:56)
[2021-05-18] MEDS: Normal Saline - Diluent 50 ML VIAL IV (07:57)
[2021-05-18] MEDS: ACETAMINOPHEN 1,000 MG/100 ML BTL 400 MG IVPB (09:44)
--- NOTE | 2021-05-18 10:17 | DI.VRAD_ITS ---
PROCEDURE INFORMATION: Exam: CT Angiography Head With Contrast, Arteriography Exam date and time: 05/18/2021 6:38 AM Age: 40 years old Clinical indication: Other: Severe headache TECHNIQUE: Imaging protocol: Computed tomography angiography of the head with contrast. Exam focused on the arteries. 3D rendering (Not supervised by radiologist): MIP and/or 3D reconstructed images were created by the technologist. Radiation optimization: All CT scans at this facility use at least one of these dose optimization techniques: automated exposure control; mA and/or kV adjustment per patient size (includes targeted exams where dose is matched to clinical indication); or iterative reconstruction. COMPARISON: No relevant prior studies available. FINDINGS: ANTERIOR CIRCULATION: Right internal carotid artery: Unremarkable. Intracranial segment is patent with no significant stenosis. No aneurysm. Right middle cerebral artery: Unremarkable. No occlusion or significant stenosis. No aneurysm. Right anterior cerebral artery: Unremarkable. No occlusion or significant stenosis. No aneurysm. Left internal carotid artery: Unremarkable. Intracranial segment is patent with no significant stenosis. No aneurysm. Left middle cerebral artery: Unremarkable. No occlusion or significant stenosis. No aneurysm. Left anterior cerebral artery: Unremarkable. No occlusion or significant stenosis. No aneurysm. POSTERIOR CIRCULATION: Right vertebral artery: Unremarkable. No occlusion or significant stenosis. No aneurysm. Left vertebral artery: Unremarkable. No occlusion or significant stenosis. No aneurysm. Basilar artery: Unremarkable. No occlusion or significant stenosis. No aneurysm. Right posterior cerebral artery: Unremarkable. No occlusion or significant stenosis. No aneurysm. Left posterior cerebral artery: Unremarkable. No occlusion or significant stenosis. No aneurysm. Brain: No definite mass, mass effect, or midline shift. Cerebral ventricles: No ventriculomegaly. Bones/joints: Unremarkable. No acute fracture. Soft tissues: Unremarkable. IMPRESSION: No large vessel stenosis or occlusion. No aneurysm. Dictated and Authenticated by: Angelita Elizabeth MD. Ordering:YASMIN Saldana MD
[2021-05-18] MEDS: Prochlorperazine 10 MG TAB 30 MG PO (11:48)
--- NOTE | 2021-05-18 15:26 | NUR.NOTE ---
referral to [facility] for neurology
--- NOTE | 2021-05-20 10:37 | PDOC.ERCMPRO ---
- If Service Date Differs Date of service: 05/20/21 Time of Service: 10:37 Care Management Progress Note Kaitlynn is seen in the ED for a migraine. At the request of ED provider, HERNANDEZ coordinates a referral to Rose Diop MD, to assist Kaitlynn in obtaining a follow up appointment.
== END 2021-05-18 11:55 | disposition home or self-care (01) ==
PROVIDERS: Student in an Organized Health Care Education/Training Program; Emergency Provider Physician Assistant; PCP Nurse Practitioner Family
DX: G43.809 Other migraine, not intractable, without status migrainosus (principal)
CPT/HCPCS: 70496; 80053; 96361; 96374; 96375; 99285; 85025; 99284; J0131; J0780; J1200; J1885; J2930; J3490

== ENCOUNTER 2022-12-02 04:33 | Outpatient (CLI) | payer BC, SELFPAY ==
[2022-12-03 18:58] LABS: FSH 21.6 mIU/mL (See Note)
== END 2022-12-02 04:34 | disposition home or self-care (01) ==
PROVIDERS: PCP Nurse Practitioner Family; Visit Provider Nurse Practitioner Family
DX: N95.1 Menopausal and female climacteric states (principal)
CPT/HCPCS: 36415; 83001; 83002

== ENCOUNTER 2022-12-16 10:41 | Emergency (ER) | payer BC, SELFPAY ==
[2022-12-16] VITALS (39 sets, daily range): BP systolic 151–175; BP diastolic 62–95; PULSE 59–105; RESP 16–20; TEMP 36.5; O2SAT 96–100
--- NOTE | 2022-12-16 11:13 | W.ED.GENAD ---
Discharge Plan Disposition Patient Disposition: Home Discharge Details Clinical Impression: JB (acute kidney injury) Primary Care Provider: Tutu Cancino ED Provider: Carmine Vargas Meds and New Rx's Prescriptions: No Action (DME) OneTouch Ultra Blue Test Strip Strip See Rx Instructions .ROUTE .MEDSUPPLY Qty: 50 0RF Rx Instructions: As directed clobetasol 0.05 % ointment 1 applic topical DAILY Qty: 45 0RF ondansetron HCl [Zofran] 4 mg tablet 4 mg PO Q6H Qty: 14 1RF metoprolol succinate 25 mg tablet extended release 24 hr 25 mg PO DAILY Qty: 90 3RF prochlorperazine maleate [Compazine] 10 mg tablet 10 mg PO TID PRN (Reason: headaches) Qty: 30 3RF spironolactone 50 mg tablet 50 mg PO DAILY Qty: 90 3RF triamcinolone acetonide 0.1 % cream 1 applic topical BID Qty: 30 1RF atorvastatin 40 mg tablet 40 mg PO DAILY Qty: 90 5RF lisinopril 40 mg tablet 40 mg PO DAILY Qty: 90 4RF bisacodyl [Dulcolax (bisacodyl)] 5 mg tablet,delayed release (DR/EC) 5 mg PO ONCE Qty: 4 0RF Rx Instructions: Take according to provider's instructions for colonoscopy prep. polyethylene glycol 3350 17 gram/dose powder 17 g PO ONCE Qty: 238 0RF Rx Instructions: To be taken as directed by prescriber's office for colonoscopy prep. metformin 500 mg tablet 1,000 mg PO BID Qty: 180 4RF (DME) pen needle, diabetic [1st Tier Unifine Pentips] 31 gauge x 3/16 needle See Rx Instructions .ROUTE .MEDSUPPLY Qty: 100 3RF Rx Instructions: As directed BID for E11.65 Discharge Instructions Additional Instructions: You were seen in the emergency department for your abdominal pain. Your CAT scan shows that you have a large hernia. If you develop abdominal pain that suddenly worsens or if you begin feeling nauseous and do not stop vomiting please return to the emergency department. Otherwise please follow-up with her primary care provider later this week. Please return to the department if you have any concerns. Discharge Data Discharge Date/Time-TO BE ENTERED AT DEPARTURE: 12/16/22 17:01 Discharge Physician: Carmine Vargas Medical Decision Making This is an overall very well-appearing normothermic and mildly tachycardic female with left-sided abdominal pain concerning for intra-abdominal infection versus ureterolithiasis. Also possible based on the patient's sex we will obtain a ECG and troponin to assess for ACS. No rash to abdomen to suggest zoster. Given the patient had a remote cyst removed from near her spleen recurrence is also a possibility. Diverticulitis is also a possibility as the patient does have an elevated BMI. Will check lipase to assess for pancreatitis. Will reassess following CT and labs. She is not recently to suggest splenic arterial aneurysm nor preeclampsia. She has no pain out of proportion to suggest necrotizing soft tissue infection. She arrived mildly tachycardic but this is normalized. Her blood pressure is elevated and she does have a history of hypertension. 1:25 PM I spoke with Dr. Bills from general surgery and I advised him of the abdominal wall hernia. He felt comfortable with plan for outpatient follow-up. There is no signs of strangulation or incarceration. She did have a small left-sided ovarian cyst but I was not concerned for ovarian torsion based on the size of her cyst and the predominantly upper nature of her left-sided abdominal pain. Will discharge now with return indications and empiric trial of expectant outpatient management. Prior to this patient's labs returning I had ordered 15 mg of IV ketorolac. Patient subsequently received IV contrast for her CT scan. Her comprehensive metabolic panel is significant for an JB. Given her hypertension will obtain a urinalysis to assess for proteinuria. We will provide an additional 1 L of IV fluids and repeat basic metabolic panel in 2 hours. 1:52 PM I met with the patient and explained plan of care. She was on a number of antihypertensive medications which she takes every evening. She takes metoprolol, spironolactone, and lisinopril. She has never seen a peoples[employer] financial developer in the past. 4:05 PM I spoke [place] Con[place] [facility] [place] advised her of the patient's JB and her history of diabetes and hypertension requiring multiple oral agents. She felt comfortable with the patient being discharged given that she is making urine and having no ongoing GI losses. I met with the patient and advised her that if she began becoming nauseous and vomiting or if she stops making urine that she should return immediately to the emergency department. Otherwise we will pursue an empiric trial of expectant outpatient management with strict return indications. 4:10 PM I spoke with Bev RN from [facility] who will help to arrange for repeat labs for this patient later this week. HPI General Date/Time Provider Initiated Documentation: 12/16/22 11:12. HPI Narrative: This is a 42-year-old female elevated BMI and a remote history of left-sided upper abdominal cyst that was removed following an ex lap performed 12 years ago in [place] now with left-sided abdominal pain since yesterday. Patient had 4 episodes of diarrhea yesterday and vomited once yesterday. Today she has had persistent cramping abdominal pain that increases with activity and walking. 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 Of note she has recently seen a general surgeon and there has been discussion of an EGD and a colonoscopy which have not yet been performed. Patient is a daily tobacco user but denies routine ethanol. She is feeling persistently nauseous but she has not had any vomiting fevers chest pain nor shortness of breath. She denies dysuria but does note that she has been urinating less recently. Related Data Home Medications Medication Instructions Recorded Confirmed blood sugar diagnostic (OneTouch #50 ea 09/11/20 12/16/22 Ultra Blue Test Strip) clobetasol 0.05 % topical ointment 1 applic topical DAILY #45 grams 09/11/20 12/16/22 ondansetron HCl 4 mg tablet 4 mg PO Q6H #14 tabs 10/11/20 12/16/22 (Zofran) metformin 500 mg tablet 1,000 mg PO BID #180 tabs 01/09/22 12/16/22 pen needle, diabetic 31 gauge x #100 ea 01/09/22 12/16/22 3/16 (1st Tier Unifine Pentips) atorvastatin 40 mg tablet 40 mg PO DAILY #90 tabs 08/21/22 12/16/22 lisinopril 40 mg tablet 40 mg PO DAILY #90 tabs 08/21/22 12/16/22 metoprolol succinate 25 mg 25 mg PO DAILY #90 tabs 10/19/22 12/16/22 tablet,extended release 24 hr prochlorperazine maleate 10 mg 10 mg PO TID PRN headaches #30 tabs 10/19/22 12/16/22 tablet (Compazine) spironolactone 50 mg tablet 50 mg PO DAILY #90 tabs 11/25/22 12/16/22 triamcinolone acetonide 0.1 % 1 applic topical BID #30 grams 11/25/22 12/16/22 topical cream bisacodyl 5 mg tablet,delayed 5 mg PO ONCE #4 tabs 12/14/22 12/16/22 release (Dulcolax (bisacodyl)) polyethylene glycol 3350 17 17 g PO ONCE #238 grams 12/14/22 12/16/22 gram/dose oral powder Previous Rx's Medication Instructions Recorded blood sugar diagnostic (OneTouch #50 ea 09/11/20 Ultra Blue Test Strip) clobetasol 0.05 % topical ointment 1 applic topical DAILY #45 grams 09/11/20 ondansetron HCl 4 mg tablet 4 mg PO Q6H #14 tabs 10/11/20 (Zofran) metformin 500 mg tablet 1,000 mg PO BID #180 tabs 01/09/22 pen needle, diabetic 31 gauge x #100 ea 01/09/2201/14 (1st Tier Unifine Pentips) atorvastatin 40 mg tablet 40 mg PO DAILY #90 tabs 08/21/22 lisinopril 40 mg tablet 40 mg PO DAILY #90 tabs 08/21/22 metoprolol succinate 25 mg 25 mg PO DAILY #90 tabs 10/19/22 tablet,extended release 24 hr prochlorperazine maleate 10 mg 10 mg PO TID PRN headaches #30 tabs 10/19/22 tablet (Compazine) spironolactone 50 mg tablet 50 mg PO DAILY #90 tabs 11/25/22 triamcinolone acetonide 0.1 % 1 applic topical BID #30 grams 11/25/22 topical cream bisacodyl 5 mg tablet,delayed 5 mg PO ONCE #4 tabs 12/14/22 release (Dulcolax (bisacodyl)) polyethylene glycol 3350 17 17 g PO ONCE #238 grams 12/14/22 gram/dose oral powder Allergies Allergy/AdvReac Type Severity Reaction Status Date / Time fentanyl AdvReac Pt states Verified 12/16/22 10:49 increased BP, HR, and temperature. General Stated Complaint: Abd Prob JOE: 3 PFSH All Active Problems (Updated 12/16/22 @ 16:14 by Carmine Vargas MD) JB (acute kidney injury) (Acute) Perimenopause (Acute) Nausea & vomiting (Acute) Diabetic ulcer of ankle (Acute) Migraine (Chronic) Hypertension (Chronic) Diarrhea due to drug (Acute) Metformin at highest dose. Keep pt on 1000mg as tolerated. 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 atient records show Splenic cyst removal (no date noted)-kb Surgical History S/P tonsillectomy Status post incision and drainage (~09/10/20) Family History Mother , 67 Asthma Diabetes Father , 82 Cancer Lung, kidney, bladder, prostate Hyperlipidemia Heart disease Hypertension Social History Smoking/Tobacco Use Status: Current every day Tobacco Type: cigarettes Years smoked: 2 Quit status: considering quitting Smoking risk assessment performed?: Yes Alcohol Intake: former Drug use: Daily Substance use type: marijuana Caregiver/Support person: No Household members: spouse and family Housing: house Communication Needs: None Do you need help understanding health information?: Rarely Pets and animals: Yes Pets and animals: cat(s) and dog(s) Sexually active: Yes Do you think of yourself as: straight/heterosexual Current gender identity: female What is your relationship status?: How often do you talk on the phone with friends or family?: once per week How often do you get together with friends or relatives?: twice per week How often do you attend orthodoxy or congregation services?: decline to answer Do you belong to any clubs or organized social groups?: no Panel score (0-1 are the most socially isolated patients): 2 What type of physical activity do you participate in: walking Duration: 15-30 minutes/day Frequency: 3-4 times per week Fina/Jainism: No preference Special fina needs: No Seatbelt use: always Helmet use: Yes Helmet use: sometimes Drive intox or ride w/intox oil transport driver: No Do you feel safe at home: Yes Do you feel safe in your relationship?: Yes Victim of physical abuse: No Victim of emotional abuse: No Victim of sexual abuse: No Would you like helpful sources: No Exam Narrative Exam Narrative: General: Well-appearing in no acute distress speaking in complete sentences. Head: Normocephalic, atraumatic Ear, nose, mouth, throat: Grossly normal inspection. Normal voice, handling secretions normally. Neck: Trachea midline. Cardiovascular: Well-perfused distal extremities. Respiratory: Nonlabored respiration. Clear lungs. Gastrointestinal: Nondistended abdomen. Midline well-healing ex lap scar. Left-sided diffuse tenderness. No rebound. No guarding. No rash to abdomen. Musculoskeletal: No edema. Moving all 4 extremities spontaneously. Skin: Normal for age and race, grossly normal temperature and turgor. No acute rash. Neurologic: Alert and appropriate, no apparent acute deficits. Psychiatric: Mood and manner are appropriate. Grooming and personal hygiene are appropriate. Course Vital Signs Vital signs: Vital Signs Temperature 36.5 C 12/16/22 10:46 Pulse 105 H 12/16/22 10:46 Respiratory Rate 16 12/16/22 10:46 Blood Pressure 175/63 H 12/16/22 10:46 Pulse Oximetry 100 12/16/22 10:46 Temperature 36.5 C 12/16/22 10:46 Temperature Source Oral 12/16/22 10:46 Pulse 105 H 12/16/22 10:46 Respiratory Rate 16 12/16/22 10:46 Respiratory Effort Short of Breath 12/16/22 10:48 Blood Pressure 175/63 H 12/16/22 10:46 Blood Pressure Position Sitting 12/16/22 10:46 Pulse Oximetry 100 12/16/22 10:46 Oxygen Delivery Method Room Air 12/16/22 10:46 Oxygen Flow Rate 0 12/16/22 10:46 Pain Level 7 12/16/22 10:46 POCUS Exam (ED) Limited Retroperitoneal(Renal)Exam DATE OF EXAM: 12/16/22 DIFFERENTIAL DIAGNOSES: No left-sided hydronephrosis.
--- NOTE | 2022-12-16 11:15 | DI.CT_ITS ---
Exam(s) CT ABDOMEN PELVIS W EXAM: CT ABDOMEN PELVIS W CLINICAL HISTORY: Abdominal pain. TECHNIQUE: Imaging Protocol: Axial computed tomography images with coronal and sagittal reformatted images were created and reviewed CONTRAST MATERIAL: Intravenous: Omnipaque 350 Contrast volume:100 ml Oral: / no COMPARISON: US US ABDOMEN RENAL from 03/05/[address] BRAIN CTA from 05/18/2021 FINDINGS: ABDOMEN: Lung Bases: Normal where visualized. Liver: Normal density. No measurable mass. Gallbladder and biliary tract: No radiodense calculus or dilation. Pancreas: Normal density, no abnormal calcifications or inflammatory process. Spleen: Normal size. Inferior scarring and small calcification.. Kidneys: Normal size, contour and axis. No radiodense stones or obstructive uropathy. Small bilatera l cysts no suspicious masses seen. Adrenal glands: No masses seen. Abdominal Aorta: Abdominal portion non-dilated. Mild atherosclerotic changes. Soft tissues: Large defect in the anterior abdominal wall, between the rectus muscles through which l oops of bowel and mesentery herniate. No obstruction. Others smaller abdominal wall hernias seen guaman periorly containing fat. PELVIS: Bladder: No gross wall thickening. No calculi.No focal mass. Bowel: No obstruction or bowel wall thickening. Appendix not seen.Normal quantity of stool Peritoneal cavity: No ascites, collection or mesenteric inflammatory response. Bones: Degenerative disc changes at L3-4 and L4-5. There is severe disc space narrowing and prominen t posterior osteophyte formation versus calcification of the disc margin at L4-5. This causes mild c entral canal stenosis as well as bilateral neural foraminal narrowing. Compression fractures Reproductive organs: The uterus and right ovary unremarkable. Left ovarian cyst 3.3 cm. Lymph nodes: Multiple small para-aortic lymph nodes, may be reactive.. Impression: Large abdominal wall hernia at and below the level of the umbilicus on the left containing multiple l oops of bowel as well as mesentery without evidence of incarceration or obstruction. No acute abnormality identified. Findings called to Carmine Vargas, emergency department provider. RADIATION DOSE DELIVERED: 809.43mGy.cm Total DLP DATA REPOSITORY: All CT scans at this facility are submitted to the National Radiology Data Registry (NRDR) Dose Index Registry (DIR) with the [employer] (ACR). RADIATION OPTIMIZATION: All CT scans at this facility use at least one of these dose optimization te chniques: automated exposure control; mA and/or kV adjustment per patient size (includes targeted exa ms where dose is matched to clinical indication); or iterative reconstruction.
--- NOTE | 2022-12-16 11:15 | RT.EKG_ITS ---
APPROVED REPORT Exam: Resting ECG Reason for Exam: Chest pain Patient Location: E HR:67 bpm ECG Measurements Heart Rate 67 AXIS NH 120 P 33 QRSd 80 QRS 34 QT 386 T 46 QTc 408 Conclusion Sinus rhythm...normal P axis, V-rate 60- 99 Low voltage, precordial leads...precordial leads <1.0mV Narrow complex normal sinus rhythm at a rate of 67. Normal axis. Borderline short NH interval at 12 0 ms. Normal QTc. No ST segment abnormalities. No prior for comparison. Low voltage based on prec ordial leads.
[2022-12-16 11:56] LABS: Abs Immature Grans 0.07 10^3/uL (0.0-0.06); Absolute Eosinophil Count 0.26 10^3/uL (0.0-0.7); Absolute Monocyte Count 0.61 10^3/uL (0.1-0.8); Basophils % 0.8; HGB 11.7 g/dL (11.2-15.7); Immature Grans % 0.5; Lymphocytes % 17.7; MCHC 31.6 % (32.0-36.0); MCV 86 fL (80-95); MPV 9.2 fL (8.0-11.0); Monocytes % 4.7; Neutrophils % 74.3; Platelet Count 476 10^3/uL (130-400); RBC 4.33 10^6/uL (3.93-5.22); RDW-SD 43.8 fL; WBC 12.97 10^3/uL (4.4-10.8)
[2022-12-16] MEDS: Ketorolac 15 MG/ML VIAL IVP (12:01)
[2022-12-16] MEDS: Ondansetron 4 MG/2 ML VIAL IVP (12:01)
[2022-12-16] MEDS: Normal Saline 1,000 ML 1000 ML IV ×2 (12:02→14:30)
[2022-12-16 12:07] LABS: Absolute Neutrophil Count 9.64 10^3/uL (1.2-6.7)
[2022-12-16] MEDS: Omnipaque 350 MG/ML 100 ML BTL IJ (12:14)
[2022-12-16] MEDS: Normal Saline Flush 10 ML SYR IVP (12:14)
[2022-12-16] MEDS: Normal Saline - Diluent 50 ML VIAL IV (12:15)
[2022-12-16 12:16] LABS: HCG Qual (Serum) Negative
[2022-12-16 12:19] LABS: ALT 14 U/L (14-59); AST 15 U/L (15-37); Albumin 3.5 g/dL (3.4-5.0); Alkaline Phosphatase 109 U/L (46-116); Anion Gap 11.8 mmol/L (3-11); BUN 27 mg/dL (7-18); Bilirubin, Total 0.2 mg/dL (0.2-1.0); CO2 22.2 mmol/L (21.0-32.0); CREATININE 2.7 mg/dL (0.55-1.02); Calcium 9.2 mg/dL (8.5-10.1); Chloride 101 mmol/L (98-107); Estimated GFR 21.63 (mL/min/1.73m2); Glucose 160 mg/dL (74-106); Lipase 53 U/L (16-77); Potassium 4.5 mmol/L (3.5-5.1); Sodium 135 mmol/L (136-145); Total Protein 7.9 g/dL (6.4-8.2); Troponin I < 50 ng/L (<or=60)
[2022-12-16 14:35] LABS: Bilirubin Negative (Negative); Blood Small (Negative); Clarity Clear (Clear); Glucose Negative (Negative); Ketones Negative (Negative); Leukocyte Esterase Negative (Negative); Nitrite Negative (Negative); Urobilinogen 0.2 EU/dL (Up TO 0.2); pH 7.5 (5-8)
[2022-12-16 14:45] LABS: Bacteria Negative HPF (Negative); Casts Negative LPF (Negative); Crystals Negative HPF (Negative); Epithelial Cells Few HPF (Negative); Mucus Moderate (Negative); WBC 0-2 HPF (0-5)
[2022-12-16 14:46] LABS: C & S Indicated? No
[2022-12-16 15:49] LABS: Anion Gap 7.3 mmol/L (3-11); BUN 25 mg/dL (7-18); CO2 22.7 mmol/L (21.0-32.0); CREATININE 2.5 mg/dL (0.55-1.02); Calcium 7.9 mg/dL (8.5-10.1); Chloride 106 mmol/L (98-107); Estimated GFR 23.72 (mL/min/1.73m2); Glucose 133 mg/dL (74-106); Sodium 136 mmol/L (136-145)
== END 2022-12-16 17:01 | disposition home or self-care (01) ==
PROVIDERS: Emergency Provider Emergency Medicine; PCP Nurse Practitioner Family
DX: N17.9 Acute kidney failure, unspecified (principal); I10 Essential (primary) hypertension; E11.622 Type 2 diabetes mellitus with other skin ulcer; Z79.84 Long term (current) use of oral hypoglycemic drugs
CPT/HCPCS: 36415; 36416; 76775; 80048; 80053; 82962; 83690; 93005; 96361; 96374; 96375; 99285; 74177; 81003; 81015; 83735; 84484; 84703; 85025; 93010; J1885; J2405; J3490

== ENCOUNTER 2022-12-18 09:43 | Outpatient (CLI) | payer BC, SELFPAY ==
[2022-12-18 09:23] LABS: Anion Gap 12.7 mmol/L (3-11); BUN 22 mg/dL (7-18); CO2 17.3 mmol/L (21.0-32.0); CREATININE 2.5 mg/dL (0.55-1.02); Calcium 8.9 mg/dL (8.5-10.1); Chloride 105 mmol/L (98-107); Estimated GFR 23.72 (mL/min/1.73m2); Glucose 156 mg/dL (74-106); Potassium 5.2 mmol/L (3.5-5.1); Sodium 135 mmol/L (136-145)
== END 2022-12-18 09:44 | disposition home or self-care (01) ==
LOC: LBO 09:44
PROVIDERS: PCP Nurse Practitioner Family; Visit Provider Nurse Practitioner Family
DX: N17.9 Acute kidney failure, unspecified (principal)
CPT/HCPCS: 36415; 80048

== ENCOUNTER 2023-02-16 02:36 | Outpatient (CLI) | payer BC, SELFPAY ==
[2023-02-16 14:35] LABS: Bilirubin Negative (Negative); Blood Small (Negative); Clarity Sl Cloudy (Clear); Glucose Negative (Negative); Ketones Negative (Negative); Leukocyte Esterase Negative (Negative); Nitrite Negative (Negative); Urobilinogen 0.2 mg/dL (Up to 0.2)
[2023-02-16 14:39] LABS: Abs Immature Grans 0.04 10^3/uL (0.0-0.06); Absolute Eosinophil Count 0.31 10^3/uL (0.0-0.7); Absolute Lymphocyte Count 2.64 10^3/uL (1.2-3.4); Absolute Neutrophil Count 7.66 10^3/uL (1.2-6.7); Basophils % 0.9; Eosinophils % 2.8; HCT 32.9 % (36.0-46.0); HGB 10.7 g/dL (11.2-15.7); Immature Grans % 0.4; Lymphocytes % 23.6; MCH 27.6 pg (27.0-33.0); MCHC 32.5 % (32.0-36.0); MCV 85 fL (80-95); MPV 9.1 fL (8.0-11.0); Monocytes % 3.8; Neutrophils % 68.5; Platelet Count 447 10^3/uL (130-400); RBC 3.88 10^6/uL (3.93-5.22); RDW 13.3 % (11.7-14.6); RDW-SD 41.2 fL; WBC 11.18 10^3/uL (4.4-10.8)
[2023-02-16 14:43] LABS: Absolute Monocyte Count 0.42 10^3/uL (0.1-0.8)
[2023-02-16 14:45] LABS: Bacteria Few HPF (Negative); Casts 0-2 Fine Granular LPF (Negative); Crystals Negative HPF (Negative); Epithelial Cells Moderate HPF (Negative); Mucus Negative (Negative); WBC Negative HPF (0-5)
[2023-02-16 14:49] LABS: C & S Indicated? No
[2023-02-16 15:18] LABS: Anion Gap 10.8 mmol/L (3-11); BUN 44 mg/dL (7-18); CO2 23.2 mmol/L (21.0-32.0); Calcium 8.5 mg/dL (8.5-10.1); Chloride 100 mmol/L (98-107); Estimated GFR 19.06 (mL/min/1.73m2); Glucose 109 mg/dL (74-106); Potassium 4.5 mmol/L (3.5-5.1); Sodium 134 mmol/L (136-145)
[2023-02-17 10:22] LABS: HIV-1/2 Ag & Ab Screen Negative (Negative)
[2023-02-17 10:31] LABS: C3 Complement 167 mg/dL (81-157); C4 Complement 33 mg/dL (13-39); Kappa Free Light Chain 5.36 mg/dL (0.33-1.94); Lambda Free Light Chain 3.65 mg/dL (0.57-2.63)
[2023-02-17 12:33] LABS: Albumin g/dL 3.8 g/dL (3.6-5.2); Total Protein 7.1 g/dL (6.3-8.2)
[2023-02-17 14:09] LABS: ANA Interpretation Positive (Negative); ANA Titer Pattern 1:160 Homogeneous
[2023-02-19 11:17] LABS: Phospholipase A2 Recep, ELISA <2 RU/mL
[2023-03-26 10:15] LABS: PLA2R, Immunoflurescence Positive (Negative)
== END 2023-02-16 02:37 | disposition home or self-care (01) ==
LOC: LBO 02:36
PROVIDERS: PCP Nurse Practitioner Family; Visit Provider Internal Medicine Nephrology
DX: N17.9 Acute kidney failure, unspecified (principal)
CPT/HCPCS: 36415; 80048; 83520; 84156; 84166; 86255; 86335; 87389; 81003; 81015; 83883; 84165; 85025; 86038; 86160

== ENCOUNTER 2023-04-22 07:03 | Day surgery (SDC) | payer BC, SELFPAY ==
--- NOTE | 2023-04-21 20:44 | W.PREOPHP ---
Assessment and Plan Assessment and plan (1) Nausea & vomiting: Status: Acute Assessment and plan: We reviewed the risks and benifits of the proceedures again today and she would like to proceed as planned. History of Present Illness History of Present Illness Chief Complaint: Nasuea and vomiting Narrative: ?She is 42 years old, and she tells me that for several months she has been awakened from sleep with the sensation of nausea followed shortly thereafter by vomiting is relieved her discomfort.? She says it typically happens between 3 AM and 6 AM.? On occasion it is associated with diarrhea.? She is not able to identify any particular trigger foods or events.? There are no relieving variables.? Her past medical history is most significant for diabetes which is managed with metformin. Since her last office visit, she has had increasing her spironolactone to help with her blood pressure. She is tolerating this well so far. Otherwise, there have been no significant interval changes PFSH All Active Problems Perimenopause (Acute) Nausea & vomiting (Acute) Diabetic ulcer of ankle (Acute) Migraine (Chronic) Hypertension (Chronic) Diarrhea due to drug (Acute) Metformin at highest dose. Keep pt on 1000mg as tolerated. 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 atient records show Splenic cyst removal (no date noted)-kb Surgical History S/P tonsillectomy Status post incision and drainage (~09/10/20) Family History Mother , 67 Asthma Diabetes Father , 82 Cancer Lung, kidney, bladder, prostate Hyperlipidemia Heart disease Hypertension Social History Smoking/Tobacco Use Status: Current every day Tobacco Type: cigarettes Years smoked: 2 Quit status: considering quitting Smoking risk assessment performed?: Yes Alcohol Intake: former Drug use: Daily Substance use type: marijuana Caregiver/Support person: No Household members: spouse and family Housing: house Communication Needs: None Do you need help understanding health information?: Rarely Pets and animals: Yes Pets and animals: cat(s) and dog(s) Sexually active: Yes Do you think of yourself as: straight/heterosexual Current gender identity: female What is your relationship status?: How often do you talk on the phone with friends or family?: once per week How often do you get together with friends or relatives?: twice per week How often do you attend evangelical or scientologist services?: decline to answer Do you belong to any clubs or organized social groups?: no Panel score (0-1 are the most socially isolated patients): 2 What type of physical activity do you participate in: walking Duration: 15-30 minutes/day Frequency: 3-4 times per week Fina/Catholic: No preference Special fina needs: No Seatbelt use: always Helmet use: Yes Helmet use: sometimes Drive intox or ride w/intox local combination truck driver: No Do you feel safe at home: Yes Do you feel safe in your relationship?: Yes Victim of physical abuse: No Victim of emotional abuse: No Victim of sexual abuse: No Would you like helpful sources: No Meds Allergies and Home Medications Allergies Allergy/AdvReac Type Severity Reaction Status Date / Time fentanyl AdvReac Pt states Verified 04/22/23 07:26 increased BP, HR, and temperature. Home Medications Medication Instructions Recorded Confirmed Type blood sugar diagnostic (OneTouch #50 ea 09/11/20 04/20/23 Rx Ultra Blue Test Strip) clobetasol 0.05 % topical ointment 1 applic topical DAILY #45 grams 09/11/20 04/20/23 Rx ondansetron HCl 4 mg tablet 4 mg PO Q6H #14 tabs 10/11/20 04/22/23 Rx (Zofran) metformin 500 mg tablet 1,000 mg PO BID #180 tabs 01/09/22 04/22/23 Rx pen needle, diabetic 31 gauge x #100 ea 01/09/22 04/20/23 Rx 3/16 (1st Tier Unifine Pentips) atorvastatin 40 mg tablet 40 mg PO DAILY #90 tabs 08/21/22 04/22/23 Rx triamcinolone acetonide 0.1 % 1 applic topical BID #30 grams 11/25/22 04/20/23 Rx topical cream losartan 100 1 tab PO DAILY #90 tabs 12/23/22 04/22/23 Rx mg-hydrochlorothiazide 25 mg tablet prochlorperazine maleate 10 mg 10 mg PO TID PRN headaches #30 tabs 01/06/23 04/22/23 Rx tablet (Compazine) metoprolol succinate 25 mg 25 mg PO HS 04/20/23 04/22/23 History tablet,extended release 24 hr spironolactone 50 mg tablet 50 mg PO DAILY 04/20/23 04/22/23 History Exam Const General: cooperative, healthy appearing and comfortable Orientation: awake and oriented x3 Eyes General: appearance normal, both eyes and all related structures Conjunctivae: conjunctivae normal Sclera: sclerae normal Resp Effort & Inspection: normal respiratory effort and able to speak in complete sentences Auscultation: clear to auscultation bilaterally Cardio Jugular venous pressure: no JVD Rate: regular rate Rhythm: regular rhythm GI Inspection: non-distended Palpation: soft, no guarding, no hernias and nontender Auscultation: normal bowel sounds Skin General skin exam: normal turgor Neuro General: patient alert, patient awake and patient oriented x3 Cognition: normal cognition Extrem Right lower extremity: no edema Left lower extremity: no edema
--- NOTE | 2023-04-21 20:45 | W.PM.ENDDOP ---
Date of service: 04/22/23 Time of Service: 09:44 Endoscopy Report DATE OF PROCEDURE: 04/22/23 PRE-OP DIAGNOSIS: Nausea and vomiting; screening colonoscopy POST-OP DIAGNOSIS: other (Dumont's esophagus; colorectal polyps) PROCEDURE: EGD with biopsies and colonoscopy with polypectomy SURGEON: Deacon Bills ANESTHESIA TYPE: General:No Airway ESTIMATED BLOOD LOSS: 20 PATHOLOGY: other (Biopsies of duodenum, gastric antrum and body, gastroesophageal junction. Rectal polyps x2, polyp at 40 cm) COMPLICATIONS: None DISPOSITION: same day INDICATIONS: She is 42 years old, and she tells me that for several months she has been awakened from sleep with the sensation of nausea followed shortly thereafter by vomiting is relieved her discomfort.? She says it typically happens between 3 AM and 6 AM.? On occasion it is associated with diarrhea.? She is not able to identify any particular trigger foods or events.? There are no relieving variables.? Her past medical history is most significant for diabetes which is managed with metformin. PREP: Miralax/Dulcolax PROCEDURE START TIME: 08:38 PROCEDURE END TIME: 09:16 COLONOSCOPY RETRACTION TIME: 9 FINDINGS: GE junction at 38 cm, short segment Dumont's esophagus extending to 35 cm; 0.25 cm rectal polyp, 1.25 cm rectal polyp, 1 cm polyp at 40 cm PROCEDURE DESCRIPTION: After the initiation of monitored anesthetic care, and with the assistance of a bite block, I advanced a standard gastroscope through the mouth past the hypopharynx and into the esophagus.? Under the direct vision of the scope, I advanced down the esophagus into the stomach.? Once I entered the stomach, I performed a brief inspection, followed by retroflexion towards the gastric cardia.? This appeared normal.? After that, I gently advanced the scope around the incisura angularis and examined the pylorus.? This also appeared normal.? Next, I advanced the scope through the pylorus into the duodenum.? The mucosa was pink and healthy appearing.? There were no abnormalities.? I did perform some random biopsies of the duodenum. I was able to visualize bile draining into the duodenum through the ampulla Vater. ?Next, I began retracting the endoscope.? I brought the camera back into the stomach, and performed random biopsies of the gastric antrum and body.? I then gently desufflated some of the stomach, and withdrew the endoscope into the distal esophagus. The GE junction was at 38 cm. There was a segment of Dumont's esophagus extending up to 35 cm. I performed four-quadrant biopsies of the distal esophagus at the GE junction. ?Finally, I withdrew the scope along the length of the esophagus taking great care to examine the entirety of the mucosa.? I did not appreciate any abnormalities. Next we moved back into the left lateral decubitus position, I began by performing an external anorectal exam.? Perineum and skin were normal, as was the anal verge.? There was no evidence of external hemorrhoids.? Next, I performed a digital rectal exam.? I did not appreciate any abnormal findings.? Next, I advanced a colonoscope into the rectal vault.? I performed retroflexion.? This appeared normal.? Within the rectal vault were 2 polyps. One was sessile and 0.25 cm. This was removed with cold forceps polypectomy. The other polyp was larger. I would estimate it to be 1.25 cm. It was pedunculated. It was removed with cold snare polypectomy. using insufflation, I then advanced the colonoscope beyond the rectal folds and into the sigmoid colon before advancing towards the cecum.? The quality of the prep was excellent.? The scope was noted to be in the cecum by identification of the ileocecal valve and appendiceal orifice.? I then began withdrawing the colonoscope using repeated irrigation as necessary for full evaluation of the colonic mucosa. Around 40 cm from the anal verge I identified a 1 cm polyp. ?It appeared pedunculated in character. ?I was able to remove this with a cold snare. ?I examined the site, and there was minimal bleeding. ?Once this was completed, I continued to withdraw the scope and examine the remainder of the colonic mucosa.?Once the scope was withdrawn to the level of the rectum, great care was taken to examine portions of the rectal folds.? Finally, the scope was withdrawn and the patient was brought to the same-day surgery recovery unit as the anesthetic wore off. ?The findings and instructions were shared with the patient prior to discharge.
--- NOTE | 2023-04-21 20:46 | W.PM.DSUDISC ---
Date of service: 04/22/23 Time of Service: 09:40 Discharge Plan Disposition Patient Disposition: Home Condition: Good Discharge Details Reason For Visit: EGD and colonoscopy Attending Provider: Deacon Bills Primary Care Provider: Tutu Cancino Home Meds and New Rx's Prescriptions: New omeprazole 20 mg capsule,delayed release(DR/EC) 20 mg PO DAILY Qty: 30 3RF Rx Instructions: Take 1 tablet by mouth every day sucralfate [Carafate] 1 gram tablet 1 g PO QACHS Qty: 90 3RF Rx Instructions: Take as instructed Continued (DME) OneTouch Ultra Blue Test Strip Strip See Rx Instructions .ROUTE .MEDSUPPLY Qty: 50 0RF Rx Instructions: As directed clobetasol 0.05 % ointment 1 applic topical DAILY Qty: 45 0RF ondansetron HCl [Zofran] 4 mg tablet 4 mg PO Q6H Qty: 14 1RF triamcinolone acetonide 0.1 % cream 1 applic topical BID Qty: 30 1RF losartan-hydrochlorothiazide 100-25 mg tablet 1 tab PO DAILY Qty: 90 3RF atorvastatin 40 mg tablet 40 mg PO DAILY Qty: 90 5RF metformin 500 mg tablet 1,000 mg PO BID Qty: 180 4RF (DME) pen needle, diabetic [1st Tier Unifine Pentips] 31 gauge x 3/16 needle See Rx Instructions .ROUTE .MEDSUPPLY Qty: 100 3RF Rx Instructions: As directed BID for E11.65 prochlorperazine maleate [Compazine] 10 mg tablet 10 mg PO TID PRN (Reason: headaches) Qty: 30 3RF spironolactone 50 mg tablet 50 mg PO DAILY Patient Comments: TAKE 1 TABLET BY MOUTH DAILY metoprolol succinate 25 mg tablet extended release 24 hr 25 mg PO HS Discontinued peg 3350-electrolytes [Golytely] 236-22.74-6.74 -5.86 gram recon soln 240 ml PO Q10M Qty: 8000 0RF Rx Instructions: take as instructed until fecal effluent is clear Discharge Instructions Instructions: Dumont Esophagus (GEN), Colorectal Polyps (GEN) Additional Instructions: Breath, we were able to complete your endoscopies today without any difficulty. Your upper endoscopy shows that you have inflammation around your GE junction. This is consistent with gastroesophageal reflux disease. Furthermore, there is some irregularity of the connection between your esophagus and your stomach that is consistent with something called Dumont's esophagus. These are changes in the area of the GE junction that occur with chronic reflux across the connection. I have added prescriptions for omeprazole as well as Carafate to help control this. I perform multiple biopsies along the length of your upper endoscopy today to look for any other abnormal changes. When I have the results of those I will be in touch. Your colonoscopy was significant for 3 polyps. 2 of these were in your rectum, and the other was a little further up. I removed all of these completely. Similar to your upper endoscopy, we will take a little time to get the final pathology report, but I will be in touch at that point with all the final recommendations. 1. If tolerated, consume a soft, low fiber diet for 1-2 days. 2. Do not drive, drink alcohol, operate machinery, make critical decisions, or do activities that require coordination or balance for 24 hours. 3. Because air was put into your colon during the procedure, expelling air from your rectum (passing gas or farting) is normal. 4. You may not have a bowel movement for 1-3 days because of the colonoscopy prep. This is normal. 5. You may experience a sore throat for 24 to 48 hours. You may use throat lozenges or gargle with warm salt water to relieve the discomfort. 6. Because air was put into your stomach during the procedure, you may experience some belching. 7. Go directly to the emergency room if you notice any of the following: Develop chills (warm to touch), or if you have a thermometer and your temperature is above 101 Difficulty breathing or difficultly swallowing Persistent vomiting Severe abdominal pain, other than gas cramps Severe chest pain Black, tarry stools Any bleeding ? exceeding one tablespoon 8. Call your physician if the site where your intravenous was started becomes red, swollen, painful, and warm to touch. 9. Your physician has reviewed your pre-procedure medications. Please continue to take those medications as previously ordered. You will be given specific information/education regarding any changes to your medications before leaving. Activity:: Activity as Tolerated Diet:: As Tolerated Discharge Orders Discharge Orders: Discharge Order (Routine); Ordered 04/21/23 Ordered By: Deacon Bills DS: Diagnosis Discharge Diagnosis (1) Nausea & vomiting: Status: Acute
[2023-04-22 07:16] VITALS: BP 165/89; PULSE 82; RESP 18; TEMP 36.1; O2SAT 99
[2023-04-22] MEDS: Lactated Ringers 1,000 ML 80 ML IV (07:46)
--- NOTE | 2023-04-22 08:08 | W.ANESPRE ---
General Info Date of Service Date Performed: 04/22/23 Height: 5 ft 4 in Weight: 79.1 kg Body Mass Index (BMI): 29.9 Surgical Procedure: Operation Date: 04/22/23 08:35 Proposed Procedure Side Surgeon p Colonoscopy/Gastroscopy Deacon Bills MD Actual Procedure Side Surgeon p Colonoscopy/Gastroscopy Not Applicable Deacon Bills MD Pre-Op Diagnosis Post-Op Diagnosis Nausea/Vomitting and screening colonoscopy Meds Allergies and Home Medications Allergies Allergy/AdvReac Type Severity Reaction Status Date / Time fentanyl AdvReac Pt states Verified 04/22/23 07:26 increased BP, HR, and temperature. Home Medication Medication Instructions Recorded blood sugar diagnostic (OneTouch #50 ea 09/11/20 Ultra Blue Test Strip) clobetasol 0.05 % topical ointment 1 applic topical DAILY #45 grams 09/11/20 ondansetron HCl 4 mg tablet 4 mg PO Q6H #14 tabs 10/11/20 (Zofran) metformin 500 mg tablet 1,000 mg PO BID #180 tabs 01/09/22 pen needle, diabetic 31 gauge x #100 ea 01/09/22/16 (1st Tier Unifine Pentips) atorvastatin 40 mg tablet 40 mg PO DAILY #90 tabs 08/21/22 triamcinolone acetonide 0.1 % 1 applic topical BID #30 grams 11/25/22 topical cream losartan 100 1 tab PO DAILY #90 tabs 12/23/22 mg-hydrochlorothiazide 25 mg tablet prochlorperazine maleate 10 mg 10 mg PO TID PRN headaches #30 tabs 01/06/23 tablet (Compazine) metoprolol succinate 25 mg 25 mg PO HS 04/20/23 tablet,extended release 24 hr spironolactone 50 mg tablet 50 mg PO DAILY 04/20/23 Current Visit Medications: Current Medications Generic Name Dose Route Start Last Admin Trade Name Freq PRN Reason Stop Dose Admin Hyoscyamine Sulfate 0.125 mg 04/21/23 20:48 Hyoscyamine 0.125 Mg Sl/Oral/Chew SL 05/21/23 20:47 DIRECTED PRN Ringer's Solution 1,000 mls @ 80 mls/hr 04/22/23 06:00 04/22/23 07:46 IV 04/30/23 23:59 80 mls/hr INFUSION PIPER Administration IV Miscellaneous Supplies 1 each 04/22/23 06:00 Iv Access IV 04/30/23 23:59 DIRECTED PIPER Ondansetron HCl 4 mg 04/21/23 20:48 Ondansetron 4 Mg/2 Ml Vial IVP 05/21/23 20:47 Q4H PRN PRN Nausea / Vomiting Sodium Chloride 0 ml 04/22/23 06:00 Normal Saline Flush 10 Ml Syr IV 04/30/23 23:59 PRN PRN Sodium Chloride 0 ml 04/22/23 06:00 Normal Saline 10 Ml Vial IJ 04/30/23 23:59 DIRECTED PRN Sterile Water 0 ml 04/22/23 06:00 Water,Injection,Sterile 10 Ml Vial IJ 04/30/23 23:59 DIRECTED PRN PFSH Active Problems Active Problems: Problem Status Onset Code Perimenopause N95.1 Nausea & vomiting R11.2 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 atient records show Splenic cyst removal (no date noted)-kb Surgical History Surgical History S/P tonsillectomy Status post incision and drainage (~09/10/20) Tobacco Smoking/Tobacco Use Status: Current every day Tobacco Type: cigarettes Smoking cigarettes per day: 10 Years smoked: 2 Alcohol Alcohol Intake: former Substance Use Substance use: Daily Substance use type: marijuana Vital Signs and Lab Results Vital Signs Most Recent Vital Signs in EMR: Most Recent Vital Signs Temp Pulse Resp BP Pulse Ox 36.1 C L 82 18 165/89 H 99 04/22/23 07:16 04/22/23 07:16 04/22/23 07:16 04/22/23 07:16 04/22/23 07:16 Point of Care Results Point of Care Results: Finger Stick Blood Glucose 172 04/22/23 07:25 Lab Results Blood Type / Crossmatch: No Data to Display Complete Blood Count: No Data to Display Complete Metabolic Panel: No Data to Display Liver Function Panel: No Data to Display Coagulation Panel: No Data to Display Cardiac Panel: No Data to Display Arterial Blood Gas: No Data to Display Venous Blood Gas: No Data to Display Pancreas Panel: No Data to Display Thyroid Panel: No Data to Display Infectious Disease: No Data to Display Blood Cultures: No Data to Display Toxicology Panel: No Data to Display Panel: No Data to Display Imaging and Studies Imaging and Studies Study information below may be from another EMR and interpreted by another provider. Please see original notes in EMR for more complete details. EKG Summary: Conclusion Sinus rhythm...normal P axis, V-rate 60- 99 Low voltage, precordial leads...precordial leads <1.0mV 12/16/22 Anesthesia Assessment and Plan Anesthesia History Personal History: No History of Anesthesia Complications Family History: No Family History of Anesthesia Complications Exercise Tolerance Exercise Tolerance: Metabolic Equivalents>4 Pertinent Negatives Pertinent Negatives: No Symptoms of GERD, No Major Cardiovascular Symptoms or Complaints, No Major Pulmonary Symptoms or Complaints and No History of CVA/TIA Cardiac & Pulmonary Exam Cardiac Exam: Normal S1/S2 Heart Sounds Pulmonary Exam: Clear Bilateral Breath Sounds Implantable Cardiac Device Does patient have a Pacemaker or an ICD?: No Airway Exam Known Difficult Airway: No Mallampati Class: 1 Mouth Opening: Normal (> 3cm) Thyromental Distance: Greater than 3 cm Neck Range of Motion: Full ROM Neck Circumference: Normal Teeth Condition: Normal Dentition ASA Classification ASA Score: ASA 2 Emergency Case?: No NPO Status NPO Status: NPO Clears >2 hours, Solids >8 hours Status Status: Not Relevant due to Medical History (menopause) Anesthesia Plan Resuscitation Status: Full Code Anesthesia Technique: General Anesthesia Airway Planned: Natural Airway Monitors Used: Standard Monitors
[2023-04-22 08:20] VITALS: BMI 29.9
--- NOTE | 2023-04-22 08:42 | STOM_PTH ---
PATIENT: Kaitlynn Niño LOC: [facility] U#:[id number] AGE/SX: 42/F ROOM: RE04/22/[address]: Deacon Bills MD : 1980 BED: DIS: 04/22/2023 SPEC #: [id number] RECD: 04/22/23 12:34 STATUS: DIMA RE #: [id number] VARUN: 04/22/23 08:[address]: Deacon Bills DEPT: Surgical Specimen RECD BY: Teri Hicks ENTERED: 04/22/23 12:37 SP TYPE: STOMACH OTHR DR: Tutu Cancino, PODIATRY DOCTOR Tissues: 1 - BIOPSY BOWEL 2 - STOMACH BIOPSY 3 - STOMACH BIOPSY 4 - ESOPHAGUS BIOPSY 5 - BIOPSY BOWEL 6 - BIOPSY BOWEL Procedures: GROSS AND MICRO LEVEL 4 Comments: [id number]
[2023-04-22 09:24] VITALS: BP 114/77; PULSE 65; RESP 17; TEMP 36.2; O2SAT 99
--- NOTE | 2023-04-22 10:06 | W.ANESPOSTOP ---
Postoperative Evaluation Date, Time and Location Date Performed: 04/22/23 Time Performed: 09:35 Patient Location: Day Surgery Unit Vital Signs Most Recent Imported Vital Signs: Most Recent Vital Signs Temp Pulse Resp BP Pulse Ox 36.2 C L 65 17 114/77 99 04/22/23 09:24 04/22/23 09:24 04/22/23 09:24 04/22/23 09:24 04/22/23 09:24 Pain Score Most Recent Pain Score: Most Recent Pain Score Pain Level 0 04/22/23 09:24 Assessment Mental Status: Awake (Alert & Oriented to Patient Baseline) Airway and Respiratory Function: Patent airway with normal (patient baseline) respiratory exam Cardiovascular Function: Hemodynamically Stable Hydration Status: Adequately Hydrated Nausea & Vomiting: No Nausea or Vomiting Pain: Pt. Denies Any Pain Peripheral Nerve Block: Patient did not receive a nerve block
[2023-04-22 10:20] VITALS: BP 156/70; PULSE 58; RESP 16; TEMP 36.1; O2SAT 100
== END 2023-04-22 10:15 | disposition home or self-care (01) ==
PROVIDERS: PCP Nurse Practitioner Family; Visit Provider Surgery
PROC: (CPT 45385; principal; 2023-04-22 08:30)
DX: K22.70 Barrett's esophagus without dysplasia (principal); Z12.11 Encounter for screening for malignant neoplasm of colon; D12.8 Benign neoplasm of rectum; R11.2 Nausea with vomiting, unspecified; E11.9 Type 2 diabetes mellitus without complications; K21.00 Gastro-esophageal reflux disease with esophagitis, without bleeding; D12.5 Benign neoplasm of sigmoid colon
CPT/HCPCS: 45385; 45380; 43239; 88305; J2405

== ENCOUNTER 2023-07-26 11:08 | Outpatient (CLI) | payer BC, SELFPAY ==
[2023-07-26 12:27] LABS: HCT 33.6 % (36.0-46.0); HGB 10.8 g/dL (11.2-15.7); MCH 26.7 pg (27.0-33.0); MCHC 32.1 % (32.0-36.0); MCV 83 fL (80-95); MPV 9.3 fL (8.0-11.0); Platelet Count 373 10^3/uL (130-400); RBC 4.04 10^6/uL (3.93-5.22); RDW 13.7 % (11.7-14.6); RDW-SD 41.7 fL
[2023-07-26 12:36] LABS: ALT 12 U/L (14-59); AST 10 U/L (15-37); Albumin 3.6 g/dL (3.4-5.0); Alkaline Phosphatase 116 U/L (46-116); Anion Gap 9.8 mmol/L (3-11); BUN 39 mg/dL (7-18); Bilirubin, Total 0.2 mg/dL (0.2-1.0); CO2 21.2 mmol/L (21.0-32.0); CREATININE 2.8 mg/dL (0.55-1.02); Chloride 102 mmol/L (98-107); Estimated GFR 20.58 (mL/min/1.73m2); Glucose 109 mg/dL (74-106); Potassium 5.2 mmol/L (3.5-5.1); Sodium 133 mmol/L (136-145); Total Protein 7.7 g/dL (6.4-8.2)
[2023-07-26 13:06] LABS: Hemoglobin A1C 6.8 % (<5.7)
== END 2023-07-26 11:09 | disposition home or self-care (01) ==
LOC: LOS 11:08
PROVIDERS: PCP Nurse Practitioner Family; Referring Provider Nurse Practitioner Family; Visit Provider Nurse Practitioner Family
DX: E11.9 Type 2 diabetes mellitus without complications (principal); I10 Essential (primary) hypertension; G43.909 Migraine, unspecified, not intractable, without status migrainosus
CPT/HCPCS: 36415; 80053; 85027; 83036

== ENCOUNTER → 2023-08-13 03:02 | Outpatient (CLI) | payer BC, SELFPAY ==
--- NOTE | 2023-08-13 06:45 | DI.MRI_ITS ---
Exam(s) MR BRAIN WO EXAM: MR BRAIN WO CLINICAL HISTORY: consistant migraine for 1 week,g43.909 TECHNIQUE: Multiplanar multisequence MRI of the brain was performed. COMPARISON: CT CT BRAIN CTA from 05/18/2021 FINDINGS: VENTRICLES AND EXTRA AXIAL SPACES: Normal in size and morphology for the patient's age. MIDLINE SHIFT: None. CEREBRAL PARENCHYMA: No focus of restricted diffusion to suggest acute infarct. No space-occupying le jennifer identified. Mild atrophy consistent with the patient's age. Mild scattered foci of high signa l in the white matter consistent with sequela of chronic microvascular disease. HEMORRHAGE: None. BRAINSTEM/CEREBELLUM: Normal. VISUALIZED PARANASAL SINUSES/MASTOIDS:Mucosal thickening left maxillary sinus. Vasculature: Normal flow void. PITUITARY GLAND: Unremarkable. ORBITS: Unremarkable. IMPRESSION: Unremarkable MRI of the brain. DATA REPOSITORY:
== END ==
PROVIDERS: PCP Nurse Practitioner Family; Visit Provider Nurse Practitioner Family
DX: G43.909 Migraine, unspecified, not intractable, without status migrainosus (principal)
CPT/HCPCS: 70551

== ENCOUNTER 2023-09-27 03:31 | Outpatient (CLI) | payer BC, SELFPAY ==
[2023-09-27 10:27] LABS: Calculated LDL 87 mg/dL (<100); Cholesterol 163 mg/dL (<200); HDL Cholesterol 30 mg/dL (40-60); Triglyceride 233 mg/dL (<150)
[2023-09-27 16:16] LABS: Anion Gap 15.7 mmol/L (3-11); BUN 38 mg/dL (7-18); CO2 18.3 mmol/L (21.0-32.0); Calcium 9.4 mg/dL (8.5-10.1); Chloride 104 mmol/L (98-107); Estimated GFR 18.94 (mL/min/1.73m2); Glucose 112 mg/dL (74-106); Potassium 5.2 mmol/L (3.5-5.1); Sodium 138 mmol/L (136-145)
== END 2023-09-27 03:32 | disposition home or self-care (01) ==
LOC: LBO 03:31
PROVIDERS: PCP Nurse Practitioner Family; Visit Provider Nurse Practitioner Family
DX: E78.1 Pure hyperglyceridemia (principal)
CPT/HCPCS: 36415; 80048; 80061

== ENCOUNTER 2024-01-26 04:32 | Outpatient (RCR) | payer BC, SELFPAY ==
[2024-01-12] MEDS: IRON SUCROSE COMPLEX 300 MG in Normal Saline 250 ML 176.667 MG IVPB (09:07)
[2024-01-12] MEDS: Normal Saline Flush 10 ML SYR IVP (09:11)
[2024-01-21] MEDS: Normal Saline Flush 10 ML SYR IVP (12:44)
[2024-01-21] MEDS: IRON SUCROSE COMPLEX 300 MG in Normal Saline 250 ML 176.667 MG IVPB (12:44)
[2024-01-26] MEDS: IRON SUCROSE COMPLEX 300 MG in Normal Saline 250 ML 176.667 MG IVPB (09:15)
[2024-01-26] MEDS: Normal Saline Flush 10 ML SYR IVP (09:15)
== END 2024-01-30 23:59 | disposition home or self-care (01) ==
LOC: INF 04:32
PROVIDERS: PCP Nurse Practitioner Family; Visit Provider Family Medicine
DX: N18.4 Chronic kidney disease, stage 4 (severe) (principal); D63.1 Anemia in chronic kidney disease; D50.9 Iron deficiency anemia, unspecified
CPT/HCPCS: 96365; 96366; J1756

== ENCOUNTER → 2024-02-03 02:55 | Outpatient (CLI) | payer BC, SELFPAY ==
--- NOTE | 2024-02-03 | DI.US_ITS ---
APPROVED REPORT EXAM: Comprehensive 2D, Doppler, and color-flow Echocardiogram Patient Location: Out-Patient Field Property Loss Specialist: Shanon Blevins RDCS (AE) Indications: Murmur Other Information Study Quality: Adequate Conclusion Normal left ventricular wall thickness and chamber size. EF is 55-60%. Wall motion is normal Normal right ventricualr size and function Both atria are normal in size There is no structural or hemodynamically significant valvular disease Estimated right ventricular systolic pressure is 20 mmHg Wall motion Left Ventricle The left ventricle is normal size. The left ventricular systolic function is normal. The left ventric ular ejection fraction is within the normal range. There is normal left ventricular wall thickness. T here is normal LV segmental wall motion. There is no ventricular septal defect visualized. LVEF is 55 -60%. Right Ventricle The right ventricle is normal size. The right ventricular systolic function is normal. Atria The left atrium size is normal. The right atrium size is normal. The interatrial septum is intact wit h no evidence for an atrial septal defect. Aortic Valve The aortic valve is normal in structure. Aortic valve is trileaflet. There is no aortic valvular sten osis. No aortic regurgitation is present. Mitral Valve The mitral valve is normal in structure. No evidence of mitral valve stenosis. Trace mitral regurgit ation. Tricuspid Valve The tricuspid valve is normal in structure. There is no tricuspid valve stenosis. Trace tricuspid reg urgitation. The RVSP is 20.2 mmHg. Pulmonic Valve The pulmonary valve is normal in structure. There is no pulmonic valvular stenosis. Trace pulmonic re gurgitation. Great Vessels The aortic root is normal in size. The ascending aorta is normal in size. Aortic arch is normal in ca liber. IVC is normal in size and collapses >50% with inspiration. Pericardium There is no pericardial effusion. 2D Dimensions IVSD d PLAX 0.87 cm F: 0.6-1.0 Ao Root d 3.08 cm F: 2.7 - 3.3 LVPW d PLAX 0.88 cm F: 0.6 - 1.0 Ao Asc Diam d 3.07 cm F: 2.3 - 3.1 LVID d PLAX 4.94 cm F: 3.8 - 5.2 LVDs 3.36 cm F: 2.2 - 3.5 LV EF Teichholz 60.0 % FS 32.03 % LV EDV (Teich) 114.9 mL LV ESV (Teich) 46.0 mL M-Mode TAPSE 2.53 cm (M/F) >1.7 Auto EF LV EDV A4C 124.7 mL LV EDV A2C 109.2 mL LV EDV BP 117.5 mL LV ESV A4C 57.0 mL LV ESV A2C 48.5 mL LV ESV BP 52.3 mL LVEF(%) A4C 54.2 % LVEF(%) A2C 55.6 % LVEF(%) BP 55.5 % LV SV A4C 67.6 ml LV SV A2C 60.7 ml LV SV BP 65.1 ml LV CO A4C 3.3 L/min LV CO A2C 2.6 L/min LV CO BP 3.0 L/min HR A4C 48.59 BPM HR A2C 43.27 BPM LV EDV Index (BP) LV Strain Long Pk Overal Avg (s) 16.62 RV Strain Global Peak Long. Strain A4C 19.13 Global Peak Long. Strain A4C FW 23.36 LA Volume LA Length A4C 5.2 cm LA Length A2C 5.1 cm LA Area A4C s 20.20 cm2 LA Area A2C s 16.84 cm2 LA Vol A4C A-L 66.78 mL LA Vol A2C A-L 47.35 mL LA Vol Biplane A-L 56.8 mL LA Vol/BSA A4C A-L LA Vol/BSA A2C A-L LA Vol/BSA BP A-L 31.0 mL/m2 LA Vol A4C MOD 61.5 mL LA Vol A2C MOD 45.7 mL LA Vol BP MOD 53.3 mL RA Volume RA Area A4C 9.3 cm2 RA ESV A4C (A-L) 20.2mL RA Vol/BSA A4C A-L RA Length A4C 3.6 cm RA ESV A4C (MOD) 18.9mL LV Diastology MV E' medial 0.097 (>0.07 m/s) MV E Vmax 1.11 (0.4-1.3 m/s) MV E/E' MED 11.45 (<14) MV A Vmax 0.75 (0.4-1.3 m/s) E/A Ratio 1.5 Aortic Valve AoV Vmax 2.00 m/s LVOT Vmax 1.09 m/s AoV Peak Grad 16.0 mmHg LVOT Peak Grad 4.7 mmHg AoV Area (Vmax) 1.72 cm2 LVOT VTI 0.305 m AoV VTI 0.509 m LVOT Mean Grad 2.9 mmHg AoV Mean Iain. 1.35 m/s LVOT SV 96.10 mL AoV Mean Grad 8.4 mmHg LVOT Diam s 2.00 cm AoV Area (VTI) 1.89 cm2 Velocity Ratio 0.55 Mitral Valve MV DT 259 (160-240 msec) MV Vmax TIPS 0.99 m/s MV Mean Grad 1.3 (<2mmHg) MV VTI 0.416 m Pulmonary Valve PV Vmax 0.95 (0.5-1.5 m/s) RVOT Vmax 0.70 m/s PV Peak Grad 3.6 mmHg RVOT Peak Gr. 2.0 mmHg PV Mean Iain 0.71 m/s RVOT VTI 0.192 m PV Mean Grad 2.3 mmHg RVOT Mean Gr. 1.2 mmHg Tricuspid Valve RA Pressure 3.00 mmHg TR Vmax 2.08 m/s TV S' 0.15 m/s TR Peak Grad 17.2 mmHg RVSP (TR) 20.2 mmHg
== END ==
PROVIDERS: PCP Nurse Practitioner Family; Visit Provider Internal Medicine Nephrology
DX: R01.1 Cardiac murmur, unspecified (principal)
CPT/HCPCS: 93306

== ENCOUNTER 2024-11-03 01:19 | Outpatient (CLI) | payer BC, SELFPAY ==
[2024-11-03 09:57] LABS: Abs Immature Grans 0.01 10^3/uL (0.0-0.06); Absolute Basophil Count 0.08 10^3/uL (0.0-0.2); Absolute Eosinophil Count 0.36 10^3/uL (0.0-0.7); Absolute Lymphocyte Count 1.61 10^3/uL (1.2-3.4); Absolute Monocyte Count 0.37 10^3/uL (0.1-0.8); Absolute Neutrophil Count 4.57 10^3/uL (1.2-6.7); Basophils % 1.1 %; Eosinophils % 5.1 %; HCT 27.5 % (36.0-46.0); HGB 8.7 g/dL (11.2-15.7); Immature Grans % 0.1 %; MCH 28.6 pg (27.0-33.0); MCHC 31.6 % (32.0-36.0); MCV 91 fL (80-95); Monocytes % 5.3 %; Neutrophils % 65.4 %; Platelet Count 238 10^3/uL (130-400); RBC 3.04 10^6/uL (3.93-5.22); RDW 13.7 % (11.7-14.6); RDW-SD 45.5 fL
[2024-11-03 10:19] LABS: Diff Comment RBC Morph Reviewed; RBC Morphology Normal
[2024-11-03 10:31] LABS: Hemoglobin A1C 5.4 % (<5.7)
[2024-11-03 10:54] LABS: Iron 41 ug/dL (50-170); Total Iron Binding Capacity 218 ug/dL (250-450)
[2024-11-03 11:22] LABS: ALT 14 U/L (14-59); AST 13 U/L (15-37); Albumin 3.8 g/dL (3.4-5.0); Alkaline Phosphatase 92 U/L (46-116); Anion Gap 10.6 mmol/L (3-11); BUN 38 mg/dL (7-18); Bilirubin, Total 0.29 mg/dL (0.2-1.0); CO2 20.4 mmol/L (21.0-32.0); CREATININE 3.4 mg/dL (0.55-1.02); Calcium 7.8 mg/dL (8.5-10.1); Calculated LDL 81 mg/dL (<100); Chloride 107 mmol/L (98-107); Cholesterol 126 mg/dL (<200); Ferritin 146 ng/mL (8-252); Glucose 97 mg/dL (74-106); HDL Cholesterol 30 mg/dL (40-60); Potassium 5.4 mmol/L (3.5-5.1); Sodium 138 mmol/L (136-145); TSH (W/Ref FT4) 0.92 uIU/mL (0.36-3.74); Total Protein 7.3 g/dL (6.4-8.2); Triglyceride 79 mg/dL (<150); Vitamin B12 336 pg/mL (193-986)
[2024-11-06 10:04] LABS: Transferrin 179 mg/dL (201-352)
== END 2024-11-03 01:20 | disposition home or self-care (01) ==
PROVIDERS: PCP Nurse Practitioner Family; Visit Provider Nurse Practitioner Family
DX: D50.9 Iron deficiency anemia, unspecified (principal); N18.4 Chronic kidney disease, stage 4 (severe); Z13.220 Encounter for screening for lipoid disorders; E78.1 Pure hyperglyceridemia; Z13.1 Encounter for screening for diabetes mellitus; E11.65 Type 2 diabetes mellitus with hyperglycemia; Z79.4 Long term (current) use of insulin
CPT/HCPCS: 36415; 80053; 80061; 82607; 82728; 83036; 83540; 83550; 84443; 84466; 85025

== ENCOUNTER 2024-11-10 17:10 | Outpatient (REF) | payer BC, SELFPAY ==
--- NOTE | 2024-11-10 15:39 | PAPFT_PTH ---
PATIENT: Kaitlynn Niño LOC: [facility] U#:[id number] AGE/SX: 44/F ROOM: RE11/10/[address]: Isabel Merrill MD : 1980 BED: DIS: 11/10/2024 SPEC #: [id number] RECD: 11/10/24 17:22 STATUS: DIMA REQ #: [id number] VARUN: 11/10/24 15:[address]: Isabel Merrill DEPT: [facility] Cytology RECD BY: Teri Hicks ENTERED: 11/10/24 17:22 SP TYPE: PAPFT OTHR DR: Tutu Cancino, JOSELINE Tissues: 1 - CX/ENDOCX FOR PAP SMEARS Procedures: PAP THIN PREP/[facility] Screening HPV DNA PROBE Comments: [id number] (HPV 16 & 18/45)
== END 2024-11-10 17:11 | disposition home or self-care (01) ==
LOC: LBN 17:10
PROVIDERS: PCP Nurse Practitioner Family; Visit Provider Obstetrics & Gynecology
DX: Z11.51 Encounter for screening for human papillomavirus (HPV) (principal); Z01.419 Encounter for gynecological examination (general) (routine) without abnormal findings
CPT/HCPCS: 88142; 87624

== ENCOUNTER 2024-11-24 02:01 | Outpatient (CLI) | payer BC, SELFPAY ==
[2024-11-24 13:55] LABS: HCT 31.7 % (36.0-46.0); HGB 10.1 g/dL (11.2-15.7); MCH 28.8 pg (27.0-33.0); MCHC 31.9 % (32.0-36.0); MCV 90 fL (80-95); MPV 8.9 fL (8.0-11.0); Platelet Count 291 10^3/uL (130-400); RBC 3.51 10^6/uL (3.93-5.22); RDW 13.8 % (11.7-14.6); RDW-SD 45.3 fL; WBC 9.05 10^3/uL (4.4-10.8)
[2024-11-24 17:01] LABS: ALT 15 U/L (14-59); AST 10 U/L (15-37); Albumin 4.2 g/dL (3.4-5.0); Alkaline Phosphatase 94 U/L (46-116); Anion Gap 10.1 mmol/L (3-11); BUN 54 mg/dL (7-18); Bilirubin, Total 0.35 mg/dL (0.2-1.0); CO2 19.9 mmol/L (21.0-32.0); Calcium 8.4 mg/dL (8.5-10.1); Chloride 106 mmol/L (98-107); Estimated GFR 13.33 (mL/min/1.73m2); Glucose 100 mg/dL (74-106); Potassium 5.9 mmol/L (3.5-5.1); Sodium 136 mmol/L (136-145); Total Protein 7.9 g/dL (6.4-8.2)
== END 2024-11-24 02:02 | disposition home or self-care (01) ==
PROVIDERS: PCP Nurse Practitioner Family; Visit Provider Nurse Practitioner Family
DX: N18.4 Chronic kidney disease, stage 4 (severe) (principal)
CPT/HCPCS: 36415; 80053; 85027

== ENCOUNTER 2024-12-08 00:17 | Outpatient (CLI) | payer BC, SELFPAY ==
--- NOTE | 2024-12-08 07:45 | DI.MAMMO_ITS ---
Exam(s) MAMMO SCREENING EXAM: MAMMO SCREENING CLINICAL HISTORY: screening,z12.31 TECHNIQUE: Mammograms were interpreted according to the usual protocol including computer analysis w [employer] CAD system, tomosynthesis and C-view imaging. COMPARISON: 2020 FINDINGS: The breasts are composed of scattered fibroglandular densities, Breast Density category B. No suspicious masses or suspicious microcalcifications are seen. No skin thickening abnormal axillary lymph nodes are seen. There has been no significant change from prior exams. IMPRESSION: BI-RADS Category 1, Negative mammogram Yearly screening mammography is recommended. Breast Density - Category B, scattered fibroglandular densities. A negative radiographic report should not delay biopsy if a dominant or clinically suspicious mass is present. Up to ten percent of cancers are not identified on mammography. A negative report may reinforce clinical impression. Adenosis and dense breasts may obscure an underlying neoplasm. False positive reports average 6 to 10%. Patient will receive a letter notifying them of these results.
== END 2024-12-08 00:37 ==
LOC: DI 00:17
PROVIDERS: PCP Nurse Practitioner Family; Visit Provider Obstetrics & Gynecology
DX: Z12.31 Encounter for screening mammogram for malignant neoplasm of breast (principal); R92.323 Mammographic fibroglandular density, bilateral breasts
CPT/HCPCS: 77063; 77067

== ENCOUNTER 2025-04-04 12:59 | Outpatient (REF) | payer BC, SELFPAY | END 2025-04-04 13:00 | disposition home or self-care (01) | LOC: LBN 12:59 | PROVIDERS: PCP Nurse Practitioner Family; Visit Provider Physician Assistant | DX: L98.9 Disorder of the skin and subcutaneous tissue, unspecified (principal) | CPT/HCPCS: 87070; 87205 ==

== ENCOUNTER 2025-06-13 14:50 | Outpatient (REF) | payer BC, SELFPAY | END 2025-06-13 14:51 | disposition home or self-care (01) | LOC: LBN 14:50 | PROVIDERS: PCP Nurse Practitioner Family; Visit Provider Physician Assistant | DX: L98.9 Disorder of the skin and subcutaneous tissue, unspecified (principal) | CPT/HCPCS: 87070; 87205 ==